=== PATIENT | female | born 1955 | race Caucasian/White ===

== ENCOUNTER → 2018-04-26 14:38 | Outpatient (CLI) | payer OTHER, SELFPAY ==
--- NOTE | 2018-04-26 | DI.MRI.S_ITS ---
PROCEDURE: MR PELVIS WO CON INDICATIONS: Tailbone pain. Nerve pain in buttocks rectum and vagina worsening for 3 months. History of endometrial carcinoma. TECHNIQUE: Coronal T1 and STIR, axial T1, T2, and STIR sequences of the sacrum are performed. COMPARISON: [facility], CT, CT CHEST ABDOMEN PELVIS WITH CONTRAST, 01/20/2018, 16:20. Outside Film, CT, CT ABDOMEN PELVIS WITH/WITHOUT CONTRAST, 03/19/2018, 8:18. FINDINGS: Image quality: Excellent. Within the left aspect of the S4 and S5 segments, there is a 38 mm diameter low T1/T2 and high STIR signal intensity mass which demonstrates a prominent extraosseous component protruding anterolaterally. There is moderate to adjacent edema within the adjacent aspect of the sacrum, as well as within the left pirformis musculature. There is associated impingement upon the left S3 and S4 nerve roots. Moderate reactive signal within the endplates adjacent to the L4-L5 and L5-S1 intervertebral discs. Status post hysterectomy. Visualized portions of urinary bladder grossly unremarkable. Visualized bowel loops grossly unremarkable. No regional adenopathy. Visualized vasculature is normal in caliber. IMPRESSION: 1. Left lower sacral bony metastasis, with prominent extraosseous component, demonstrating neural impingement as described above. There is adjacent edema within the piriformis musculature. Dictated by: Lacey Montes M.D. on 04/26/2018 at 16:34 Approved by: Lacey Montes M.D. on 04/26/2018 at 16:42
== END ==
PROVIDERS: PCP Student in an Organized Health Care Education/Training Program; Visit Provider Student in an Organized Health Care Education/Training Program
DX: C79.51 Secondary malignant neoplasm of bone (principal); M53.3 Sacrococcygeal disorders, not elsewhere classified; Z85.42 Personal history of malignant neoplasm of other parts of uterus
CPT/HCPCS: 72195; 77080

== ENCOUNTER 2018-07-29 00:56 | Emergency (ER) | payer OTHER, SELFPAY ==
[2018-07-29 01:00] VITALS: BP 148/80; PULSE 67; RESP 15; TEMP 36.6; O2SAT 100; BMI 30.7
--- NOTE | 2018-07-29 01:17 | ED_ITS ---
HPI - General Adult General Chief complaint: Toxicology Problem Stated complaint: detoxing Time Seen by Provider: 07/29/18 01:17 Source: patient Mode of arrival: ambulatory Limitations: no limitations History of Present Illness HPI narrative: Patient is a 63-year-old female who is been on hydrocodone/acetaminophen for the past 4 months. She is currently undergoing a taper in order to come off this medication. She is being followed by her primary doctor. Recently she was switched from oral tablets to liquid in order to obtain lower lower doses of the hydrocodone. She is approximately 10 days left on the taper that was prescribed to her by her primary doctor. She states that since she started on the liquid form the medication she has had issues of irritability, sleeplessness, shaking, nausea, elevated blood pressure. Patient states she thinks she is having allergic reaction to the liquid version of this medication Related Data Previous Rx's Medication Instructions Recorded clonidine 1 patch TRANSDERMAL QWEEK #1 each 07/29/18 Allergies Allergy/AdvReac Type Severity Reaction Status Date / Time ibuprofen Allergy Verified 07/29/18 01:06 Iodinated Contrast- Oral and Allergy Verified 07/29/18 01:06 IV Dye Review of Systems Constitutional Reports body ache(s), Reports chills, Reports fatigue, Denies fever(s), Denies headache(s) and Reports night sweats ENT Ears, Nose, Mouth, and Throat: Denies headache(s) Cardiovascular Denies chest pain, Reports palpitations and Denies dyspnea Respiratory Denies dyspnea Gastrointestinal Gastrointestinal: Reports nausea Integumentary/Breasts Denies rash Neurologic Reports behavioral changes, Denies headache(s) and Reports tremor(s) Psychiatric Reports behavioral changes Endocrine Reports fatigue and Reports palpitations Hematologic/Lymphatic Denies easy bleeding and Denies easy bruising PFSH Surgical History No pertinent past surgical history (Acute) Social History marital status: lives independently: Yes Exam Initial Vital Signs Initial Vital Signs: Vital Signs Temperature 97.8 F 07/29/18 01:00 Pulse Rate 67 07/29/18 01:00 Respiratory Rate 15 07/29/18 01:00 Blood Pressure 148/80 H 07/29/18 01:00 Pulse Oximetry 100 07/29/18 01:00 Const General: cooperative, well developed, well groomed and No acute distress HENMT Head: normal to inspection and normocephalic Resp Effort & Inspection: normal respiratory effort Cardio Rate: regular rate GI Inspection: non-distended Skin Lesions: no lesions Rashes: no rashes Neuro General: alert, awake and oriented x3 Cognition: normal cognition Speech: speech normal Gait: normal gait Extrem General: normal to inspection and normal exam except as noted Psych Appearance: grossly normal and well kempt Speech and Movement: restless Mood: anxious mood and No angry Affect: normal affect Attitude: cooperative Thought Content: normal Course Orders Ordered: Discontinued Medications Clonidine HCl (Catapres-Tts 1) 0.1 mg TOP NOW ONE Stop: 07/29/18 01:44 Last Admin: 07/29/18 01:53 Dose: 0.1 mg Vital Signs - 8 hr 07/29/18 01:00 07/29/18 02:00 Temperature 97.8 F Pulse Rate 67 62 Respiratory Rate 15 18 Blood Pressure 148/80 H 141/70 H Pulse Oximetry 100 100 Medical Decision Making [facility] Narrative Medical decision making narrative: Explain to the patient that her symptoms are most likely not a reaction to the liquid version this medication but are most likely symptoms of withdrawal as she continues to decrease the hydrocodone use. Patient seems extremely determine to come off of the medication. She is not asking for more medication. Informed her that it is likely that her symptoms will continue until she is off of the opioid. She was given a clonidine patch in the ER to help with the symptoms. Try to provide as much encouragement is possible that the symptoms she is experiencing will not last for ever and it is important for her to continue the taper to come off the medication. Patient expressed understanding and agreement plan. Discharge Plan Departure Patient Disposition: Home Clinical Impression: Opioid withdrawal Discharge Date/Time: 07/29/18 02:00 Interventions: ED Discharge Assessment Last Done: 07/29/18 02:00 Instructions: Non-Medication Pain Relief Activity Restrictions/Additional Instructions: I would recommend that you continue taking the taper as directed by your primary doctor. Use the clonidine patch as directed. Return to the emergency department for any new or worsening symptoms Prescriptions: New clonidine 0.1 mg/24 hr patch weekly 1 patch Transdermal QWEEK Qty: 1 RF: 0 Referrals: Luh Dean PA-C [Primary Care Provider] -
[2018-07-29] MEDS: cloNIDine TTS 0.1 MG PATCH TOP (01:53)
[2018-07-29 02:00] VITALS: BP 141/70; PULSE 62; RESP 18; O2SAT 100
== END 2018-07-29 02:00 | disposition home or self-care (01) ==
PROVIDERS: Emergency Provider Emergency Medicine; PCP Student in an Organized Health Care Education/Training Program
DX: F11.23 Opioid dependence with withdrawal (principal)
CPT/HCPCS: 99282; 99283

== ENCOUNTER 2018-08-01 13:10 | Emergency (ER) | payer OTHER, SELFPAY ==
[2018-08-01] VITALS (9 sets, daily range): BP systolic 104–135; BP diastolic 52–79; PULSE 57–129; RESP 16–18; TEMP 36.2–36.7; O2SAT 99–100
[2018-08-01 14:07] LABS: INR 0.9 (0.9-1.3); Prothrombin Time 10.8 SECONDS (10.1-12.7)
[2018-08-01 14:09] LABS: PTT Partial Thromboplastin Tim 32 SECONDS (26.4-36.2)
[2018-08-01 14:13] LABS: Alanine Aminotransferase 14 IU/L (9-52); Albumin 4.3 g/dL (3.5-5.0); Albumin Globulin Ratio 1.3 (1.0-2.8); Alkaline Phosphatase 75 U/L (38-126); Aspartate Aminotransferase 23 IU/L (14-36); BUN Creatinine Ratio 16.3 (6-22); Bilirubin Total 0.5 mg/dL (0.2-1.3); Blood Urea Nitrogen 13 mg/dL (7-17); Calcium 9.5 mg/dL (8.4-10.2); Carbon Dioxide 28 mmol/L (22-32); Chloride 104 mmol/L (98-107); Estimated Glomerular Filt Rate > 60.0 mL/min (>60); Globulin 3.4 g/dL (1.7-4.1); Glucose 88 mg/dL (80-110); HEMOLYSIS < 15 (0-50); Lipase 215 U/L (23-300); Potassium 4.4 mmol/L (3.4-5.1); Sodium 139 mmol/L (137-145); Total Protein 7.7 g/dL (6.3-8.2)
[2018-08-01 14:19] LABS: Add Manual Diff / Slide Review NO; Basophils Absolute Auto 0 /uL (0-100); Basophils Percent Auto 0.4 % (0-2); Eosinophils Absolute Auto 0 /uL (0-450); Eosinophils Percent Auto 0.3 % (2-4); Hematocrit 39.4 % (36-46); Hemoglobin 13.4 g/dL (12.0-16.0); Lymphocytes Absolute Auto 600 /uL (1100-4500); Lymphocytes Percent Auto 15.1 % (25-40); Mean Corpuscular Hemoglobin 31.4 PG (26-34); Mean Corpuscular Volume 92.3 fL (80-100); Monocytes Absolute Auto 300 /uL (0-900); Neutrophils Absolute Auto 2900 /uL (1500-7000); Neutrophils Percent Auto 75.2 % (50-75); Platelet Count 232 X10^3/uL (150-400); Red Blood Cell Count 4.27 X10^6/uL (4.0-5.2); Red Cell Distribution Width 13.6 % (11.6-14.8); White Blood Cell Count 3.9 X10^3/uL (4.5-11.0)
--- NOTE | 2018-08-01 15:05 | ED.NAVMDI ---
HPI - Nausea/Vomiting/Diarrhea General Chief complaint: Nausea/Vomiting/Diarrhea Stated complaint: detox Time Seen by Provider: 08/01/18 14:50 Source: patient and family () Mode of arrival: ambulatory Limitations: no limitations History of Present Illness HPI Narrative: This 63-year-old female comes to the emergency department with complaint for not feeling well. Patient states she has felt nauseated. She states she might just be detoxing from the [place] that she has been tapering she took her last dose on Tuesday, 4 days ago. Before she was hot and cold, nauseated but not vomiting. She had difficulty with sleeping, tremor and feeling irritable. She since is continue have nausea and still feels sort of chilled but is not having any additional symptoms. She did note that she started having light bowel movements there sort of light brown in color, she states they are not white. She is not having any abdominal pain. She states her her appetite is decreased. She states she has lost about 15 lb over 3 or 4 months she has not been attempting to lose weight but she is on a restricted diet from her herbalist. Patient was seen last in April of 2018 and had a PET scan which showed a metastases to her tailbone from her uterine cancer/endometrial cancer. Patient had radiation and has not followed upper had any additional imaging. She had some nodules in her lungs, patient states her cell she refused chemo and has not followed up with Oncology since. She has not had any additional imaging or follow-up. She also takes thyroid medication. She denies smoke, tobacco, she sometimes uses THC. Mya gamez is her primary care. Related Data Previous Rx's Medication Instructions Recorded clonidine 1 patch TRANSDERMAL QWEEK #1 each 07/29/18 ondansetron HCl [Zofran] 4 mg PO QID PRN #10 tab 08/01/18 Allergies Allergy/AdvReac Type Severity Reaction Status Date / Time ibuprofen Allergy Verified 07/29/18 01:06 Iodinated Contrast- Oral and Allergy Verified 07/29/18 01:06 IV Dye Review of Systems Review of Systems ROS Unobtainable: All systems reviewed & are unremarkable except as noted in HPI and below Constitutional Denies body ache(s), Reports chills, Denies fever(s), Denies lethargy and Denies weakness Cardiovascular Denies chest pain, Denies diaphoresis, Denies syncope, Denies edema, Denies lightheadedness, Denies palpitations and Denies dyspnea Respiratory Denies chest congestion, Denies cough, Denies dyspnea and Denies wheezing Gastrointestinal Gastrointestinal: Denies abdominal pain, Denies change in bowel habits, Reports change in stool character (Light colored stool), Denies diarrhea, Reports nausea and Denies vomiting Genitourinary Denies hematuria, Denies dysuria, Denies flank pain, Denies urinary incontinence and Denies urinary urgency Musculoskeletal Reports arthralgias (Bilateral hip pain, states chronic but is worsened since she stopped norco) Integumentary/Breasts Denies erythema Neurologic Denies syncope and Denies weakness Endocrine Denies palpitations Allergic/Immunologic Denies wheezing [facility] Surgical History No pertinent past surgical history (Acute) Social History marital status: lives independently: Yes Smoking Status: Never smoker Social History (Updated 08/01/18 @ 16:06 by Kelly Lizama DO) marital status: lives independently: Yes Smoking Status: Never smoker substance use type: marijuana Exam Narrative Exam Narrative: GENERAL: Alert and oriented x three, moderately obese, well-appearing female in no acute distress. HEENT: Head normocephalic, atraumatic, EOMI, pupils reactive, face symmetric, moist mucous membranes NECK: Supple, full range of motion CARDIOVASCULAR: Regular rate and rhythm without murmurs, rubs or gallops. RESPIRATORY: Breath sounds equal bilaterally, no wheezes rales or rhonchi. ABDOMEN: Soft, nontender. Nondistended. Normoactive bowel sounds all 4 quadrants. No guarding or rebound, rigidity, no mass : No CVA tenderness EXTREMITIES: Normal range of motion, no clubbing or edema. Neurovascularly intact NEUROLOGICAL: Cranial nerves II through XII grossly intact. Moving all extremities SKIN: Warm, dry, no petechiae, no rashes or lesions. Initial Vital Signs Initial Vital Signs: Vital Signs Temperature 97.1 F L 08/01/18 13:36 Pulse Rate 62 08/01/18 13:36 Respiratory Rate 18 08/01/18 13:36 Blood Pressure 135/79 08/01/18 13:36 Pulse Oximetry 100 08/01/18 13:36 Course Orders Ordered: ED Orders 08/01/18 13:52 Complete Blood Count AUTO DIFF Stat Comprehensive Metabolic Panel Stat Lipase Stat Partial Thromboplastin Time Stat Prothrombin Time INR Stat 08/01/18 14:58 EKG-12 Lead Stat 08/01/18 15:26 US abdomen complete Stat XR chest 2V Stat 08/01/18 15:45 UA Complete [Urinalysis and Microscopic] Stat 08/01/18 15:50 Troponin & CK Cardiac Panel Stat Discontinued Medications Ondansetron HCl (Zofran Odt) 4 mg SL NOW ONE Stop: 08/01/18 15:27 Last Admin: 08/01/18 16:16 Dose: 4 mg Vital Signs - 8 hr 08/01/18 13:36 08/01/18 14:15 08/01/18 14:45 Temperature 97.1 F L Pulse Rate 62 129 H 57 L Respiratory Rate 18 16 Blood Pressure 135/79 Blood Pressure [Right Arm] 107/64 115/58 L Pulse Oximetry 100 08/01/18 14:54 08/01/18 15:00 08/01/18 15:57 Temperature Pulse Rate 58 L 57 L 60 Respiratory Rate 18 16 18 Blood Pressure Blood Pressure [Right Arm] 115/58 L 131/76 128/66 Pulse Oximetry 100 100 100 08/01/18 16:00 08/01/18 17:00 08/01/18 17:02 Temperature 98.1 F Pulse Rate 57 L 60 Respiratory Rate 16 16 18 Blood Pressure Blood Pressure [Right Arm] 128/66 104/52 L 104/52 L Pulse Oximetry 100 100 99 MDM - Nausea/Vomiting/Diarrhea Lab Data Attestation: I reviewed the patient's lab results. Result diagrams: 08/01/18 13:52 08/01/18 13:52 Lab Results 08/01/18 08/01/18 08/01/18 Range/Units 13:52 13:52 13:52 WBC 3.9 L (4.5-11.0) X10^3/uL RBC 4.27 (4.0-5.2) X10^6/uL Hgb 13.4 (12.0-16.0) g/dL Hct 39.4 (36-46) % MCV 92.3 (80-100) fL MCH 31.4 (26-34) PG MCHC 34.0 (30-36) % RDW 13.6 (11.6-14.8) % Plt Count 232 (150-400) X10^3/uL Neut % (Auto) 75.2 H (50-75) % Lymph % (Auto) 15.1 L (25-40) % [place] % (Auto) 9.0 (3-14) % Eos % (Auto) 0.3 L (2-4) % Baso % (Auto) 0.4 (0-2) % Neut # (Auto) 2900 (9847-2176) /uL Lymph # (Auto) 600 L (4073-8248) /uL [place] # (Auto) 300 (0-900) /uL Eos # (Auto) 0 (0-450) /uL Baso # (Auto) 0 (0-100) /uL PT 10.8 (10.1-12.7) SECONDS INR 0.9 (0.9-1.3) APTT 32 (26.4-36.2) SECONDS Sodium 139 (137-145) mmol/L Potassium 4.4 (3.4-5.1) mmol/L Chloride 104 (98-107) mmol/L Carbon Dioxide 28 (22-32) mmol/L BUN 13 (7-17) mg/dL Creatinine 0.80 (0.52-1.04) mg/dL Estimated GFR > 60.0 (>60) mL/min BUN/Creatinine Ratio 16.3 (6-22) Glucose 88 (80-110) mg/dL Calcium 9.5 (8.4-10.2) mg/dL Total Bilirubin 0.5 (0.2-1.3) mg/dL AST 23 (14-36) IU/L ALT 14 (9-52) IU/L Alkaline Phosphatase 75 (38-126) U/L Total Creatine Kinase (30-135) U/L CK-MB (CK-2) CK-MB (CK-2) Rel Index Troponin I (0.01-0.034) ng/mL Total Protein 7.7 (6.3-8.2) g/dL Albumin 4.3 (3.5-5.0) g/dL Globulin 3.4 (1.7-4.1) g/dL Albumin/Globulin Ratio 1.3 (1.0-2.8) Lipase 215 (23-300) U/L Urine Color Urine Appearance Urine pH (4.5-8.0) Ur Specific [place] (1.000-1.035) Urine Protein (Negative) Urine Glucose (UA) (Negative) g/dL Urine Ketones (NEGATIVE) Urine Occult Blood (Negative) Urine Nitrate (Negative) Urine Bilirubin (NEGATIVE) Urine Urobilinogen (0.2) E.U./dL Ur Leukocyte Esterase (NEGATIVE) Urine RBC (0-5/HPF) Urine WBC (0-5/HPF) Urine Bacteria (None) Ur Culture Indicated? Micro UA Comment 08/01/18 08/01/18 Range/Units 15:45 15:50 WBC (4.5-11.0) X10^3/uL RBC (4.0-5.2) X10^6/uL Hgb (12.0-16.0) g/dL Hct (36-46) % MCV (80-100) fL MCH (26-34) PG MCHC (30-36) % RDW (11.6-14.8) % Plt Count (150-400) X10^3/uL Neut % (Auto) (50-75) % Lymph % (Auto) (25-40) % [place] % (Auto) (3-14) % Eos % (Auto) (2-4) % Baso % (Auto) (0-2) % Neut # (Auto) (7092-7710) /uL Lymph # (Auto) (7503-3291) /uL [place] # (Auto) (0-900) /uL Eos # (Auto) (0-450) /uL Baso # (Auto) (0-100) /uL PT (10.1-12.7) SECONDS INR (0.9-1.3) APTT (26.4-36.2) SECONDS Sodium (137-145) mmol/L Potassium (3.4-5.1) mmol/L Chloride (98-107) mmol/L Carbon Dioxide (22-32) mmol/L BUN (7-17) mg/dL Creatinine (0.52-1.04) mg/dL Estimated GFR (>60) mL/min BUN/Creatinine Ratio (6-22) Glucose (80-110) mg/dL Calcium (8.4-10.2) mg/dL Total Bilirubin (0.2-1.3) mg/dL AST (14-36) IU/L ALT (9-52) IU/L Alkaline Phosphatase (38-126) U/L Total Creatine Kinase 28 L (30-135) U/L CK-MB (CK-2) TNP CK-MB (CK-2) Rel Index TNP Troponin I < 0.012 (0.01-0.034) ng/mL Total Protein (6.3-8.2) g/dL Albumin (3.5-5.0) g/dL Globulin (1.7-4.1) g/dL Albumin/Globulin Ratio (1.0-2.8) Lipase (23-300) U/L Urine Color Yellow Urine Appearance Clear Urine pH 5.0 (4.5-8.0) Ur Specific [place] 1.010 (1.000-1.035) Urine Protein Negative (Negative) Urine Glucose (UA) Negative (Negative) g/dL Urine Ketones Negative (NEGATIVE) Urine Occult Blood Negative (Negative) Urine Nitrate Negative (Negative) Urine Bilirubin Negative (NEGATIVE) Urine Urobilinogen 0.2 (0.2) E.U./dL Ur Leukocyte Esterase Negative (NEGATIVE) Urine RBC None seen (0-5/HPF) Urine WBC None seen (0-5/HPF) Urine Bacteria None seen (None) Ur Culture Indicated? Cult not indicated Micro UA Comment Microscopic normal Imaging Data Chest x-ray: Radiologist's impression: [address] [address] XRay Report Signed Patient: Talya Dale#: [id number] : 8Acct:[id number] Age/Sex: 63 / FDate of Service: 08/01/18 Loc: ED Accession Number: [id number] Procedure: XR chest 2V Ordering Provider: Kelly Lizama D.O. PROCEDURE: XR CHEST 2V INDICATIONS: nausea TECHNIQUE: 2 views of the chest were acquired. COMPARISON: [facility], CT, CT CHEST WITHOUT CONTRAST, 06/14/2018, 17:20. FINDINGS: Surgical changes and devices: None. Lungs and pleura: 2.5 cm right lower lobe lung nodules visible. There is mild diffuse emphysematous change. No other lung nodules are visible. No pleural effusions or pneumothorax. Mediastinum: Mediastinal contours are normal. Heart size is normal. Bones and chest wall: No suspicious bony abnormalities. Soft tissues appear unremarkable. IMPRESSION: 1. Mild emphysema. 2. 2.5 cm right lower lobe lung nodule compatible with known metastatic disease. Dictated by: Angie Hernandez M.D. on 08/01/2018 at 16:21 Approved by: Angie Hernandez M.D. on 08/01/2018 at 16:23 US - abdomen: Radiologist's impression: [place] [address] Ultrasound Report Signed Patient: Kelsi Dale#: [id number] : 8Acct:[id number] Age/Sex: 63 / FDate of Service: 08/01/18 Loc: ED Accession Number: [id number] Procedure: US abdomen complete Ordering Provider: Kelly Lizama D.O. PROCEDURE: US ABDOMEN COMPLETE INDICATIONS: NAUSEA, HX ENDOMETRIAL CA W/METS. HAD RAD NOT FLOLLOWIN TECHNIQUE: Real-time scanning was performed of the abdominal and retroperitoneal organs, with image documentation. COMPARISON: None. FINDINGS: Liver: Liver is normal in size and homogeneous in echotexture. Gallbladder: Gallbladder is normal without stones or sludge. Normal wall thickness of 1.6 mm. No pericholecystic fluid or Mcrae sign. Biliary ducts: Intrahepatic bile ducts are non-dilated. Extrahepatic bile duct caliber measures 5.3 mm. Normal is 6-7 mm or less in diameter, or 10 mm or less post-cholecystectomy. Pancreas: Visualized portions of the pancreas are sonographically normal. Spleen: Spleen is normal in size and homogeneous in echotexture. Kidneys: Kidneys are normal in size and echotexture. Right kidney measures 9.3 cm long; left kidney measures 10.3 cm long. No hydronephrosis or nephrolithiasis. No solid masses. Aorta: Visualized aorta is normal in caliber at less than 3 cm. Iliacs: Proximal common iliac arteries are normal in caliber at less than 2.5 cm. IVC: Intrahepatic inferior vena cava is patent. Miscellaneous: No free abdominal fluid. IMPRESSION: 1. Normal abdominal ultrasound. 2. No visible mass or fluid. Dictated by: Angie Hernandez M.D. on 08/01/2018 at 16:44 Approved by: Angie Hernandez M.D. on 08/01/2018 at 16:46 ECG Data Attestation: I personally reviewed and interpreted this ECG as follows: Prior ECG tracings: not available for review Interpretation: Sinus bradycardia rate of 59 P are 189 QRS of 93 QTC of 434. No ST elevation or depression appreciated. Left anterior fascicular block. MDM Narrative Medical decision making narrative: Patient's white count is a little bit low. none available for comparison. Patient's coags are normal, chemistries are normal with no changes in lipase, liver enzymes or troponin. Patient's EKG does not show any acute changes. Patient's chest x-ray does show a pulmonary nodule it is 2.5 cm of the right lower lobe lung nodule compatible with the known metastatic disease. No comments made if this is new or changed. No imaging is available for comparison right now. Abdominal ultrasound is negative. Discussed with patient some of this may be secondary to withdrawal symptoms but I would highly recommend that she follow up with her primary care to make sure that she has further surveillance as she is likely to have worsening of her disease. If she prefers her oncologist would also be a good choice. Discharge Plan Departure Patient Disposition: Home Clinical Impression: Nausea, Opioid withdrawal, Pulmonary nodule Discharge Date/Time: 08/01/18 17:30 Interventions: ED Discharge Assessment Last Done: 08/01/18 17:32 Instructions: Chemical Dependency (Narcotic) (Alternative Therapy) Activity Restrictions/Additional Instructions: Follow-up with your physician this week for recheck. I would also suggest following up with them regarding surveillance for your cancer. Continue with medications as prescribed such as the clonidine patch. May use Zofran 1 tablet every 6 hours as needed for nausea. Return to the ER for fevers greater than 100.4 F, persistent vomiting, black or bloody stools, abdominal pain, passing out, new chest pain, shortness of breath or other new or concerning symptoms. Prescriptions: New ondansetron HCl [Zofran] 4 mg tablet 4 mg PO QID PRN (Reason: nausea and vomiting) Qty: 10 RF: 0 No Action clonidine 0.1 mg/24 hr patch weekly 1 patch Transdermal QWEEK Qty: 1 RF: 0 Referrals: Luh Dean PA-C [Primary Care Provider] -
--- NOTE | 2018-08-01 15:26 | DI.RAD.S_ITS ---
PROCEDURE: XR CHEST 2V INDICATIONS: nausea TECHNIQUE: 2 views of the chest were acquired. COMPARISON: [facility], CT, CT CHEST WITHOUT CONTRAST, 06/14/2018, 17:20. FINDINGS: Surgical changes and devices: None. Lungs and pleura: 2.5 cm right lower lobe lung nodules visible. There is mild diffuse emphysematous change. No other lung nodules are visible. No pleural effusions or pneumothorax. Mediastinum: Mediastinal contours are normal. Heart size is normal. Bones and chest wall: No suspicious bony abnormalities. Soft tissues appear unremarkable. IMPRESSION: 1. Mild emphysema. 2. 2.5 cm right lower lobe lung nodule compatible with known metastatic disease. Dictated by: Angie Hernandez M.D. on 08/01/2018 at 16:21 Approved by: Angie Hernandez M.D. on 08/01/2018 at 16:23
--- NOTE | 2018-08-01 15:26 | DI.US.S_ITS ---
PROCEDURE: US ABDOMEN COMPLETE INDICATIONS: NAUSEA, HX ENDOMETRIAL CA W/METS. HAD RAD NOT FLOLLOWIN TECHNIQUE: Real-time scanning was performed of the abdominal and retroperitoneal organs, with image documentation. COMPARISON: None. FINDINGS: Liver: Liver is normal in size and homogeneous in echotexture. Gallbladder: Gallbladder is normal without stones or sludge. Normal wall thickness of 1.6 mm. No pericholecystic fluid or Mcrae sign. Biliary ducts: Intrahepatic bile ducts are non-dilated. Extrahepatic bile duct caliber measures 5.3 mm. Normal is 6-7 mm or less in diameter, or 10 mm or less post-cholecystectomy. Pancreas: Visualized portions of the pancreas are sonographically normal. Spleen: Spleen is normal in size and homogeneous in echotexture. Kidneys: Kidneys are normal in size and echotexture. Right kidney measures 9.3 cm long; left kidney measures 10.3 cm long. No hydronephrosis or nephrolithiasis. No solid masses. Aorta: Visualized aorta is normal in caliber at less than 3 cm. Iliacs: Proximal common iliac arteries are normal in caliber at less than 2.5 cm. IVC: Intrahepatic inferior vena cava is patent. Miscellaneous: No free abdominal fluid. IMPRESSION: 1. Normal abdominal ultrasound. 2. No visible mass or fluid. Dictated by: Angie Hernandez M.D. on 08/01/2018 at 16:44 Approved by: Angie Hernandez M.D. on 08/01/2018 at 16:46
--- NOTE | 2018-08-01 15:29 | PC.NURSE ---
pt concern for opiod withdrawal, c/o hot/chills,nausea and concern for beige looking stool for 2 weeks.
--- NOTE | 2018-08-01 16:09 | ED_ITS ---
HPI - Nausea/Vomiting/Diarrhea General Chief complaint: Nausea/Vomiting/Diarrhea Stated complaint: detox Time Seen by Provider: 08/01/18 14:50 Source: patient and family () Mode of arrival: ambulatory Limitations: no limitations History of Present Illness HPI Narrative: This 63-year-old female comes to the emergency department with complaint for not feeling well. Patient states she has felt nauseated. She states she might just be detoxing from the [place] that she has been tapering she took her last dose on Tuesday, 4 days ago. Before she was hot and cold, nauseated but not vomiting. She had difficulty with sleeping, tremor and feeling irritable. She since is continue have nausea and still feels sort of chilled but is not having any additional symptoms. She did note that she started having light bowel movements there sort of light brown in color, she states they are not white. She is not having any abdominal pain. She states her her appetite is decreased. She states she has lost about 15 lb over 3 or 4 months she has not been attempting to lose weight but she is on a restricted diet from her herbalist. Patient was seen last in April of 2018 and had a PET scan which showed a metastases to her tailbone from her uterine cancer/endometrial cancer. Patient had radiation and has not followed upper had any additional imaging. She had some nodules in her lungs, patient states her cell she refused chemo and has not followed up with Oncology since. She has not had any additional imaging or follow-up. She also takes thyroid medication. She denies smoke, tobacco, she sometimes uses THC. May gamez is her primary care. Related Data Previous Rx's Medication Instructions Recorded clonidine 1 patch TRANSDERMAL QWEEK #1 each 07/29/18 ondansetron HCl [Zofran] 4 mg PO QID PRN #10 tab 08/01/18 Allergies Allergy/AdvReac Type Severity Reaction Status Date / Time ibuprofen Allergy Verified 07/29/18 01:06 Iodinated Contrast- Oral and Allergy Verified 07/29/18 01:06 IV Dye Review of Systems Review of Systems ROS Unobtainable: All systems reviewed & are unremarkable except as noted in HPI and below Constitutional Denies body ache(s), Reports chills, Denies fever(s), Denies lethargy and Denies weakness Cardiovascular Denies chest pain, Denies diaphoresis, Denies syncope, Denies edema, Denies li ghtheadedness, Denies palpitations and Denies dyspnea Respiratory Denies chest congestion, Denies cough, Denies dyspnea and Denies wheezing Gastrointestinal Gastrointestinal: Denies abdominal pain, Denies change in bowel habits, Reports change in stool character (Light colored stool), Denies diarrhea, Reports nausea and Denies vomiting Genitourinary Denies hematuria, Denies dysuria, Denies flank pain, Denies urinary incontinence and Denies urinary urgency Musculoskeletal Reports arthralgias (Bilateral hip pain, states chronic but is worsened since she stopped norco) Integumentary/Breasts Denies erythema Neurologic Denies syncope and Denies weakness Endocrine Denies palpitations Allergic/Immunologic Denies wheezing [facility] Surgical History No pertinent past surgical history (Acute) Social History marital status: lives independently: Yes Smoking Status: Never smoker Social History (Updated 08/01/18 @ 16:06 by Kelly Lizama DO) marital status: lives independently: Yes Smoking Status: Never smoker substance use type: marijuana Exam Narrative Exam Narrative: GENERAL: Alert and oriented x three, moderately obese, well- appearing female in no acute distress. HEENT: Head normocephalic, atraumatic, EOMI, pupils reactive, face symmetric, moist mucous membranes NECK: Supple, full range of motion CARDIOVASCULAR: Regular rate and rhythm without murmurs, rubs or gallops. RESPIRATORY: Breath sounds equal bilaterally, no wheezes rales or rhonchi. ABDOMEN: Soft, nontender. Nondistended. Normoactive bowel sounds all 4 q uadrants. No guarding or rebound, rigidity, no mass : No CVA tenderness EXTREMITIES: Normal range of motion, no clubbing or edema. Neurovascularly intact NEUROLOGICAL: Cranial nerves II through XII grossly intact. Moving all extremities SKIN: Warm, dry, no petechiae, no rashes or lesions. Initial Vital Signs Initial Vital Signs: Vital Signs Temperature 97.1 F L 08/01/18 13:36 Pulse Rate 62 08/01/18 13:36 Respiratory Rate 18 08/01/18 13:36 Blood Pressure 135/79 08/01/18 13:36 Pulse Oximetry 100 08/01/18 13:36 Course Orders Ordered: ED Orders 08/01/18 13:52 Complete Blood Count AUTO DIFF Stat Comprehensive Metabolic Panel Stat Lipase Stat Partial Thromboplastin Time Stat Prothrombin Time INR Stat 08/01/18 14:58 EKG-12 Lead Stat 08/01/18 15:26 US abdomen complete Stat XR chest 2V Stat 08/01/18 15:45 UA Complete [Urinalysis and Microscopic] Stat 08/01/18 15:50 Troponin & CK Cardiac Panel Stat Discontinued Medications Ondansetron HCl (Zofran Odt) 4 mg SL NOW ONE Stop: 08/01/18 15:27 Last Admin: 08/01/18 16:16 Dose: 4 mg Vital Signs - 8 hr 08/01/18 13:36 08/01/18 14:15 08/01/18 14:45 Temperature 97.1 F L Pulse Rate 62 129 H 57 L Respiratory Rate 18 16 Blood Pressure 135/79 Blood Pressure [Right Arm] 107/64 115/58 L Pulse Oximetry 100 08/01/18 14:54 08/01/18 15:00 08/01/18 15:57 Temperature Pulse Rate 58 L 57 L 60 Respiratory Rate 18 16 18 Blood Pressure Blood Pressure [Right Arm] 115/58 L 131/76 128/66 Pulse Oximetry 100 100 100 08/01/18 16:00 08/01/18 17:00 08/01/18 17:02 Temperature 98.1 F Pulse Rate 57 L 60 Respiratory Rate 16 16 18 Blood Pressure Blood Pressure [Right Arm] 128/66 104/52 L 104/52 L Pulse Oximetry 100 100 99 MDM - Nausea/Vomiting/Diarrhea Lab Data Attestation: I reviewed the patient's lab results. Result diagrams: 08/01/18 13:52 08/01/18 13:52 Lab Results 08/01/18 08/01/18 08/01/18 Range/Units 13:52 13:52 13:52 WBC 3.9 L (4.5-11.0) X10^3/uL RBC 4.27 (4.0-5.2) X10^6/uL Hgb 13.4 (12.0-16.0) g/dL Hct 39.4 (36-46) % MCV 92.3 (80-100) fL MCH 31.4 (26-34) PG MCHC 34.0 (30-36) % RDW 13.6 (11.6-14.8) % Plt Count 232 (150-400) X10^3/uL Neut % (Auto) 75.2 H (50-75) % Lymph % (Auto) 15.1 L (25-40) % [place] % (Auto) 9.0 (3-14) % Eos % (Auto) 0.3 L (2-4) % Baso % (Auto) 0.4 (0-2) % Neut # (Auto) 2900 (2422-6930) /uL Lymph # (Auto) 600 L (8222-0094) /uL [place] # (Auto) 300 (0-900) /uL Eos # (Auto) 0 (0-450) /uL Baso # (Auto) 0 (0-100) /uL PT 10.8 (10.1-12.7) SECONDS INR 0.9 (0.9-1.3) APTT 32 (26.4-36.2) SECONDS Sodium 139 (137-145) mmol/L Potassium 4.4 (3.4-5.1) mmol/L Chloride 104 (98-107) mmol/L Carbon Dioxide 28 (22-32) mmol/L BUN 13 (7-17) mg/dL Creatinine 0.80 (0.52-1.04) mg/dL Estimated GFR > 60.0 (>60) mL/min BUN/Creatinine Ratio 16.3 (6-22) Glucose 88 (80-110) mg/dL Calcium 9.5 (8.4-10.2) mg/dL Total Bilirubin 0.5 (0.2-1.3) mg/dL AST 23 (14-36) IU/L ALT 14 (9-52) IU/L Alkaline Phosphatase 75 (38-126) U/L Total Creatine Kinase (30-135) U/L CK-MB (CK-2) CK-MB (CK-2) Rel Index Troponin I (0.01-0.034) ng/mL Total Protein 7.7 (6.3-8.2) g/dL Albumin 4.3 (3.5-5.0) g/dL Globulin 3.4 (1.7-4.1) g/dL Albumin/Globulin Ratio 1.3 (1.0-2.8) Lipase 215 (23-300) U/L Urine Color Urine Appearance Urine pH (4.5-8.0) Ur Specific [place] (1.000-1.035) Urine Protein (Negative) Urine Glucose (UA) (Negative) g/dL Urine Ketones (NEGATIVE) Urine Occult Blood (Negative) Urine Nitrate (Negative) Urine Bilirubin (NEGATIVE) Urine Urobilinogen (0.2) E.U./dL Ur Leukocyte Esterase (NEGATIVE) Urine RBC (0-5/HPF) Urine WBC (0-5/HPF) Urine Bacteria (None) Ur Culture Indicated? Micro UA Comment 08/01/18 08/01/18 Range/Units 15:45 15:50 WBC (4.5-11.0) X10^3/uL RBC (4.0-5.2) X10^6/uL Hgb (12.0-16.0) g/dL Hct (36-46) % MCV (80-100) fL MCH (26-34) PG MCHC (30-36) % RDW (11.6-14.8) % Plt Count (150-400) X10^3/uL Neut % (Auto) (50-75) % Lymph % (Auto) (25-40) % [place] % (Auto) (3-14) % Eos % (Auto) (2-4) % Baso % (Auto) (0-2) % Neut # (Auto) (2823-0983) /uL Lymph # (Auto) (7670-3919) /uL [place] # (Auto) (0-900) /uL Eos # (Auto) (0-450) /uL Baso # (Auto) (0-100) /uL PT (10.1-12.7) SECONDS INR (0.9-1.3) APTT (26.4-36.2) SECONDS Sodium (137-145) mmol/L Potassium (3.4-5.1) mmol/L Chloride (98-107) mmol/L Carbon Dioxide (22-32) mmol/L BUN (7-17) mg/dL Creatinine (0.52-1.04) mg/dL Estimated GFR (>60) mL/min BUN/Creatinine Ratio (6-22) Glucose (80-110) mg/dL Calcium (8.4-10.2) mg/dL Total Bilirubin (0.2-1.3) mg/dL AST (14-36) IU/L ALT (9-52) IU/L Alkaline Phosphatase (38-126) U/L Total Creatine Kinase 28 L (30-135) U/L CK-MB (CK-2) TNP CK-MB (CK-2) Rel Index TNP Troponin I < 0.012 (0.01-0.034) ng/mL Total Protein (6.3-8.2) g/dL Albumin (3.5-5.0) g/dL Globulin (1.7-4.1) g/dL Albumin/Globulin Ratio (1.0-2.8) Lipase (23-300) U/L Urine Color Yellow Urine Appearance Clear Urine pH 5.0 (4.5-8.0) Ur Specific [place] 1.010 (1.000-1.035) Urine Protein Negative (Negative) Urine Glucose (UA) Negative (Negative) g/dL Urine Ketones Negative (NEGATIVE) Urine Occult Blood Negative (Negative) Urine Nitrate Negative (Negative) Urine Bilirubin Negative (NEGATIVE) Urine Urobilinogen 0.2 (0.2) E.U./dL Ur Leukocyte Esterase Negative (NEGATIVE) Urine RBC None seen (0-5/HPF) Urine WBC None seen (0-5/HPF) Urine Bacteria None seen (None) Ur Culture Indicated? Cult not indicated Micro UA Comment Microscopic normal Imaging Data Chest x-ray: Radiologist's impression: [place] [address] XRay Report Signed Patient: Talya Dale#: [id number] : 8Acct:[id number] Age/Sex: 63 / FDate of Service: 08/01/18 Loc: ED Accession Number: [id number] Procedure: XR chest 2V Ordering Provider: Kelly Lizama D.O. PROCEDURE: XR CHEST 2V INDICATIONS: nausea TECHNIQUE: 2 views of the chest were acquired. COMPARISON: [facility], CT, CT CHEST WITHOUT CONTRAST, 06/14/2018, 17:20. FINDINGS: Surgical changes and devices: None. Lungs and pleura: 2.5 cm right lower lobe lung nodules visible. There is mild diffuse emphysematous change. No other lung nodules are visible. No pleural effusions or pneumothorax. Mediastinum: Mediastinal contours are normal. Heart size is normal. Bones and chest wall: No suspicious bony abnormalities. Soft tissues appear unremarkable. IMPRESSION: 1. Mild emphysema. 2. 2.5 cm right lower lobe lung nodule compatible with known metastatic disease. Dictated by: Angie Hernandez M.D. on 08/01/2018 at 16:21 Approved by: Angie Hernandez M.D. on 08/01/2018 at 16:23 US - abdomen: Radiologist's impression: [address] [address] Ultrasound Report Signed Patient: Kelsi Dale#: [id number] : 8Acct:[id number] Age/Sex: 63 / FDate of Service: 08/01/18 Loc: ED Accession Number: [id number] Procedure: US abdomen complete Ordering Provider: Kelly Lizama D.O. PROCEDURE: US ABDOMEN COMPLETE INDICATIONS: NAUSEA, HX ENDOMETRIAL CA W/METS. HAD RAD NOT FLOLLOWIN TECHNIQUE: Real-time scanning was performed of the abdominal and retroperitoneal organs, with image documentation. COMPARISON: None. FINDINGS: Liver: Liver is normal in size and homogeneous in echotexture. Gallbladder: Gallbladder is normal without stones or sludge. Normal wall thickness of 1.6 mm. No pericholecystic fluid or Mcrae sign. Biliary ducts: Intrahepatic bile ducts are non-dilated. Extrahepatic bile duct caliber measures 5.3 mm. Normal is 6-7 mm or less in diameter, or 10 mm or less post-cholecystectomy. Pancreas: Visualized portions of the pancreas are sonographically normal. Spleen: Spleen is normal in size and homogeneous in echotexture. Kidneys: Kidneys are normal in size and echotexture. Right kidney measures 9.3 cm long; left kidney measures 10.3 cm long. No hydronephrosis or nephrolithiasis. No solid masses. Aorta: Visualized aorta is normal in caliber at less than 3 cm. Iliacs: Proximal common iliac arteries are normal in caliber at less than 2.5 cm. IVC: Intrahepatic inferior vena cava is patent. Miscellaneous: No free abdominal fluid. IMPRESSION: 1. Normal abdominal ultrasound. 2. No visible mass or fluid. Dictated by: Angie Hernandez M.D. on 08/01/2018 at 16:44 Approved by: Angie Hernandez M.D. on 08/01/2018 at 16:46 ECG Data Attestation: I personally reviewed and interpreted this ECG as follows: Prior ECG tracings: not available for review Interpretation: Sinus bradycardia rate of 59 P are 189 QRS of 93 QTC of 434. No ST elevation or depression appreciated. Left anterior fascicular block. MDM Narrative Medical decision making narrative: Patient's white count is a little bit low. none available for comparison. Patient's coags are normal, chemistries are normal with no changes in lipase, liver enzymes or troponin. Patient's EKG does not show any acute changes. Patient's chest x-ray does show a pulmonary nodule it is 2.5 cm of the right lower lobe lung nodule compatible with the known metastatic disease. No comments made if this is new or changed. No imaging is available for comparison right now. Abdominal ultrasound is negative. Discussed with patient some of this may be secondary to withdrawal symptoms but I would highly recommend that she follow up with her primary care to make sure that she has further surveillance as she is likely to have worsening of her disease. If she prefers her oncologist would also be a good choice. Discharge Plan Departure Patient Disposition: Home Clinical Impression: Nausea, Opioid withdrawal, Pulmonary nodule Discharge Date/Time: 08/01/18 17:30 Interventions: ED Discharge Assessment Last Done: 08/01/18 17:32 Instructions: Chemical Dependency (Narcotic) (Alternative Therapy) Activity Restrictions/Additional Instructions: Follow-up with your physician this week for recheck. I would also suggest following up with them regarding surveillance for your cancer. Continue with medications as prescribed such as the clonidine patch. May use Zofran 1 tablet every 6 hours as needed for nausea. Return to the ER for fevers greater than 100.4 F, persistent vomiting, black or bloody stools, abdominal pain, passing out, new chest pain, shortness of breath or other new or concerning symptoms. Prescriptions: New ondansetron HCl [Zofran] 4 mg tablet 4 mg PO QID PRN (Reason: nausea and vomiting) Qty: 10 RF: 0 No Action clonidine 0.1 mg/24 hr patch weekly 1 patch Transdermal QWEEK Qty: 1 RF: 0 Referrals: Luh Dean PA-C [Primary Care Provider] -
[2018-08-01 16:10] LABS: Creatine Kinase 28 U/L (30-135)
[2018-08-01] MEDS: ONDANSETRON 4 MG ODT SL (16:16)
[2018-08-01 16:22] LABS: Troponin I < 0.012 ng/mL (0.01-0.034)
[2018-08-01 16:28] LABS: Bacteria Urine None Seen; RBC Urine None Seen (0-5/HPF); WBC Urine None Seen (0-5/HPF)
[2018-08-01 16:30] LABS: Appearance Urine UA CLEAR; Bilirubin Urine UA NEGATIVE (NEGATIVE); Color Urine UA YELLOW; Glucose Urine UA NEGATIVE (Negative); Ketones Urine UA NEGATIVE (NEGATIVE); Leukocyte Esterase Urine UA NEGATIVE (NEGATIVE); Nitrite Urine UA NEGATIVE (Negative); Occult Blood Urine UA NEGATIVE (Negative); Protein Urine UA NEGATIVE (Negative); Urobilinogen Urine UA 0.2 E.U./dL (0.2)
[2018-08-01 16:44] LABS: Culture Indicated Urine Cult Not Indicated; Urine Comments Microscopic Normal
== END 2018-08-01 17:30 | disposition home or self-care (01) ==
PROVIDERS: Emergency Provider Emergency Medicine; PCP Student in an Organized Health Care Education/Training Program
DX: R11.0 Nausea (principal); R91.1 Solitary pulmonary nodule; F11.23 Opioid dependence with withdrawal; C54.1 Malignant neoplasm of endometrium; C79.51 Secondary malignant neoplasm of bone
CPT/HCPCS: 36415; 71046; 76700; 80053; 81001; 82550; 83690; 84484; 85025; 85610; 85730; 93005; 99283; 99285

== ENCOUNTER → 2019-02-20 14:28 | Outpatient (ROUT) | payer OTHER, SELFPAY ==
[2019-02-20 15:38] LABS: BUN Creatinine Ratio 16.7 (6-22); Blood Urea Nitrogen 15 mg/dL (7-17); Estimated Glomerular Filt Rate > 60.0 mL/min (>60)
== END ==
PROVIDERS: PCP Student in an Organized Health Care Education/Training Program; Visit Provider Internal Medicine
DX: C79.51 Secondary malignant neoplasm of bone (principal)
CPT/HCPCS: 82565; 84520

== ENCOUNTER 2019-04-10 23:02 | Emergency (ER) | payer OTHER, SELFPAY ==
[2019-04-10 23:18] VITALS: BP 127/59; PULSE 95; RESP 17; TEMP 37.8; O2SAT 95; BMI 32.4
[2019-04-10 23:50] LABS: Bacteria Urine None Seen; WBC Urine None Seen (0-5/HPF)
[2019-04-10 23:53] LABS: Culture Indicated Urine Cult Not Indicated; RBC Urine 1-5/HPF (0-5/HPF); Squamous Epithelial Cell Urine 0-1 /HPF (0-5/HPF)
[2019-04-11] MEDS: SODIUM CHLORIDE 0.9% 1,000 ML 1000 ML IV (00:08)
[2019-04-11 00:18] LABS: Add Manual Diff / Slide Review NO; Basophils Absolute Auto 0 /uL (0-100); Basophils Percent Auto 0.2 % (0-2); Eosinophils Absolute Auto 0 /uL (0-450); Eosinophils Percent Auto 0.3 % (2-4); Hematocrit 36.1 % (36-46); Hemoglobin 12.4 g/dL (12.0-16.0); Lymphocytes Absolute Auto 200 /uL (1100-4500); Lymphocytes Percent Auto 5.8 % (25-40); Mean Corpuscular HGB Conc 34.4 % (30-36); Mean Corpuscular Hemoglobin 31.1 PG (26-34); Mean Corpuscular Volume 90.3 fL (80-100); Monocytes Absolute Auto 600 /uL (0-900); Monocytes Percent Auto 18.3 % (3-14); Neutrophils Absolute Auto 2400 /uL (1500-7000); Neutrophils Percent Auto 75.4 % (50-75); Platelet Count 164 X10^3/uL (150-400); Red Blood Cell Count 3.99 X10^6/uL (4.0-5.2); Red Cell Distribution Width 14.3 % (11.6-14.8); White Blood Cell Count 3.2 X10^3/uL (4.5-11.0)
[2019-04-11 00:28] LABS: Alanine Aminotransferase 11 IU/L (<35); Albumin 3.9 g/dL (3.5-5.0); Albumin Globulin Ratio 1.2 (1.0-2.8); Alkaline Phosphatase 75 U/L (38-126); Aspartate Aminotransferase 22 IU/L (14-36); BUN Creatinine Ratio 17.5 (6-22); Bilirubin Total 0.3 mg/dL (0.2-1.3); Blood Urea Nitrogen 14 mg/dL (7-17); Calcium 8.8 mg/dL (8.4-10.2); Carbon Dioxide 26 mmol/L (22-32); Chloride 105 mmol/L (98-107); Estimated Glomerular Filt Rate > 60.0 mL/min (>60); Globulin 3.3 g/dL (1.7-4.1); Glucose 110 mg/dL (80-110); HEMOLYSIS < 15 (0-50); Lactate (Lactic Acid) 0.6 mmol/L (0.7-2.1); Potassium 4.1 mmol/L (3.4-5.1); Sodium 138 mmol/L (137-145); Total Protein 7.2 g/dL (6.3-8.2)
[2019-04-11 01:09] LABS: Influenza A - CEPHEID Flu A POSITIVE (NEGATIVE); Influenza B - CEPHEID Flu B NEGATIVE (NEGATIVE)
--- NOTE | 2019-04-11 01:57 | ED_ITS ---
HPI - Back Pain/Injury General Chief Complaint: Back Pain/Injury Stated Complaint: Severe Pain In Lower Back With Fever Time Seen by Provider: 04/10/19 23:05 Source: patient Mode of arrival: Ambulatory Limitations: no limitations History of Present Illness HPI Narrative: 63-year-old female nonsmoker with history of uterine cancer presents with her in the chief complaint back pain some dry and hacking cough and fever as high as 102 for the past day or 2. She has had nausea but denies any vomiting or diarrhea or abdominal pain. She does state that her pain is largely in her back and wraps around both flanks. She denies any dysuria, frequency or urgency. Her pain is not in the midline MD Complaint: back pain Onset (ago): day(s) Duration: constant Similar Symptoms Previously: No Location: left flank and right flank Severity: mild Quality: aching Radiation: abdomen Relieving factors: none Exacerbating factors: none Associated symptoms: fatigue, fever and chills Related Data Previous Rx's Medication Instructions Recorded clonidine 1 patch TRANSDERMAL QWEEK #1 each 07/29/18 ondansetron HCl [Zofran] 4 mg PO QID PRN #10 tab 08/01/18 oseltamivir [Tamiflu] 75 mg PO BID 5 Days #10 cap 04/11/19 Allergies Allergy/AdvReac Type Severity Reaction Status Date / Time ibuprofen Allergy Verified 07/29/18 01:06 Iodinated Contrast Media Allergy Verified 07/29/18 01:06 [Iodinated Contrast- Oral and IV Dye] Review of Systems Constitutional Constitutional: Reports chills, Reports fatigue, Reports fever(s), Denies frequent falls, Denies lethargy and Denies weakness Eyes Eyes: Denies change in vision, Denies eye discharge, Denies irritation and Denies loss of vision ENT Ears, Nose, Mouth, and Throat: Denies change in voice, Denies dizziness, Denies neck pain, Denies sore throat and Denies throat swelling Cardiovascular Cardiovascular: Denies chest pain, Denies irregular heart rhythm, Denies lightheadedness, Denies palpitations, Denies dyspnea, Denies dyspnea on exertion and Denies orthopnea Respiratory Respiratory: Reports cough, Denies dyspnea, Denies dyspnea on exertion and Denies wheezing Gastrointestinal Gastrointestinal: Denies abdominal pain, Denies change in bowel habits, Denies diarrhea, Denies nausea and Denies vomiting Genitourinary Genitourinary: Denies hematuria, Denies flank pain, Denies urinary incontinence and Denies urinary urgency Musculoskeletal Musculoskeletal: Denies back pain, Denies muscle weakness, Denies neck pain, Denies numbness and Denies tingling Integumentary/Breasts Skin/Breast: Denies pruritus, Denies erythema, Denies rash and Denies wounds Neurologic Neurologic: Denies behavioral changes, Denies confusion, Denies dizziness, Denies frequent falls, Denies loss of vision, Denies numbness, Denies tingling and Denies weakness Psychiatric Psychiatric: Denies anxiety, Denies behavioral changes, Denies confusion, Denies depression, Denies homicidal ideation and Denies suicidal ideation Endocrine Endocrine: Reports fatigue, Denies flushing and Denies palpitations Hematologic/Lymphatic Hematologic/Lymphatic: Denies easy bruising Allergic/Immunologic Allergic/Immunologic: Denies urticaria, Denies throat swelling and Denies wheezing Patient History Surgical History No pertinent past surgical history (Acute) Social History marital status: lives independently: Yes Smoking Status: Never smoker substance use type: marijuana Smoking Status: Never smoker alcohol intake frequency: other Substance Use Type: marijuana Exam Narrative Exam Narrative: GENERAL: [63] year old patient appears stated age. Well- nourished, well-developed patient, in mild distress. HEAD: Atraumatic. Normocephalic. EYES: Pupils equal round and reactive. Extraocular motions intact. No scleral icterus. No injection or drainage. ENT: Nose without bleeding, purulent drainage. Throat without erythema, tonsillar hypertrophy or exudate. Airway patent. NECK: Trachea midline. Non tender CARDIOVASCULAR: Regular rate and rhythm without murmurs, gallops, or rubs. RESPIRATORY: Clear to auscultation. Breath sounds equal bilaterally. No wheezes, rales, or rhonchi. GASTROINTESTINAL: Abdomen soft, non-tender, nondistended. EXTREMITIES: No edema or joint tenderness. BACK: Nontender without deformity or crepitance. No flank tenderness. NEURO: AOx3. SKIN: No rash or erythema of visible areas Initial Vital Signs Initial Vital Signs: Vital Signs Temperature 100.1 F H 04/10/19 23:18 Pulse Rate 95 H 04/10/19 23:18 Respiratory Rate 17 04/10/19 23:18 Blood Pressure 127/59 L 04/10/19 23:18 Pulse Oximetry 95 04/10/19 23:18 Course Orders Ordered: ED Orders 04/10/19 23:35 Urine Microscopic Stat 04/10/19 23:46 Blood Culture Stat Complete Blood Count AUTO DIFF Stat Comprehensive Metabolic Panel Stat Lactate (Lactic Acid) Stat 04/11/19 00:31 Influenza A & B (PCR) Stat Discontinued Medications Diphenhydramine HCl (Benadryl) 25 mg IV NOW ONE Stop: 04/10/19 23:46 Last Admin: 04/11/19 00:49 Dose: Not Given Documented by: DONALDL Sodium Chloride (Normal Saline 0.9%) 1,000 mls @ 1,000 mls/hr IV BOLUS ONE Stop: 04/11/19 00:44 Last Infusion: 04/11/19 01:09 Dose: 0 mls/hr Documented by: Admin: 04/11/19 00:08 Dose: 1,000 mls/hr Documented by: AUNDREA Methylprednisolone (Solu-Medrol 125 Mg Vial) 125 mg IV NOW ONE Stop: 04/10/19 23:46 Last Admin: 04/11/19 00:49 Dose: Not Given Documented by: RICARDO Oseltamivir Phosphate (Tamiflu) 75 mg PO NOW ONE Stop: 04/11/19 01:58 Last Admin: 04/11/19 02:11 Dose: 75 mg Documented by: BRIAN Vital Signs Vital signs: Vital Signs - 8 hr 04/10/19 23:18 04/11/19 02:01 Temperature 100.1 F H Pulse Rate 95 H 74 Respiratory Rate 17 15 Blood Pressure 127/59 L Blood Pressure [Left Arm] 136/67 Pulse Oximetry 95 95 MDM - Back Pain/Injury Lab Data Result diagrams: 04/11/19 00:05 04/11/19 00:05 Labs: Lab Results 04/10/19 04/11/19 04/11/19 Range/Units 23:35 00:05 00:05 WBC 3.2 L (4.5-11.0) X10^3/uL RBC 3.99 L (4.0-5.2) X10^6/uL Hgb 12.4 (12.0-16.0) g/dL Hct 36.1 (36-46) % MCV 90.3 (80-100) fL MCH 31.1 (26-34) PG MCHC 34.4 (30-36) % RDW 14.3 (11.6-14.8) % Plt Count 164 (150-400) X10^3/uL Neut % (Auto) 75.4 H (50-75) % Lymph % (Auto) 5.8 L (25-40) % [place] % (Auto) 18.3 H (3-14) % Eos % (Auto) 0.3 L (2-4) % Baso % (Auto) 0.2 (0-2) % Neut # (Auto) 2400 (4917-0478) /uL Lymph # (Auto) 200 L (5518-2210) /uL [place] # (Auto) 600 (0-900) /uL Eos # (Auto) 0 (0-450) /uL Baso # (Auto) 0 (0-100) /uL Sodium 138 (137-145) mmol/L Potassium 4.1 (3.4-5.1) mmol/L Chloride 105 (98-107) mmol/L Carbon Dioxide 26 (22-32) mmol/L BUN 14 (7-17) mg/dL Creatinine 0.80 (0.52-1.04) mg/dL Estimated GFR > 60.0 (>60) mL/min BUN/Creatinine Ratio 17.5 (6-22) Glucose 110 (80-110) mg/dL Lactate (0.7-2.1) mmol/L Calcium 8.8 (8.4-10.2) mg/dL Total Bilirubin 0.3 (0.2-1.3) mg/dL AST 22 (14-36) IU/L ALT 11 (<35) IU/L Alkaline Phosphatase 75 (38-126) U/L Total Protein 7.2 (6.3-8.2) g/dL Albumin 3.9 (3.5-5.0) g/dL Globulin 3.3 (1.7-4.1) g/dL Albumin/Globulin Ratio 1.2 (1.0-2.8) Urine RBC 1-5/hpf (0-5/HPF) Urine WBC None seen (0-5/HPF) Ur Squamous Epith Cells 0-1 /hpf (0-5/HPF) Urine Bacteria None seen (None) Ur Culture Indicated? Cult not indicated Influenza A (RT-PCR) (NEGATIVE) Influenza B (RT-PCR) (NEGATIVE) 04/11/19 04/11/19 Range/Units 00:05 00:31 WBC (4.5-11.0) X10^3/uL RBC (4.0-5.2) X10^6/uL Hgb (12.0-16.0) g/dL Hct (36-46) % MCV (80-100) fL MCH (26-34) PG MCHC (30-36) % RDW (11.6-14.8) % Plt Count (150-400) X10^3/uL Neut % (Auto) (50-75) % Lymph % (Auto) (25-40) % [place] % (Auto) (3-14) % Eos % (Auto) (2-4) % Baso % (Auto) (0-2) % Neut # (Auto) (7397-2269) /uL Lymph # (Auto) (0586-5102) /uL [place] # (Auto) (0-900) /uL Eos # (Auto) (0-450) /uL Baso # (Auto) (0-100) /uL Sodium (137-145) mmol/L Potassium (3.4-5.1) mmol/L Chloride (98-107) mmol/L Carbon Dioxide (22-32) mmol/L BUN (7-17) mg/dL Creatinine (0.52-1.04) mg/dL Estimated GFR (>60) mL/min BUN/Creatinine Ratio (6-22) Glucose (80-110) mg/dL Lactate 0.6 L (0.7-2.1) mmol/L Calcium (8.4-10.2) mg/dL Total Bilirubin (0.2-1.3) mg/dL AST (14-36) IU/L ALT (<35) IU/L Alkaline Phosphatase (38-126) U/L Total Protein (6.3-8.2) g/dL Albumin (3.5-5.0) g/dL Globulin (1.7-4.1) g/dL Albumin/Globulin Ratio (1.0-2.8) Urine RBC (0-5/HPF) Urine WBC (0-5/HPF) Ur Squamous Epith Cells (0-5/HPF) Urine Bacteria (None) Ur Culture Indicated? Influenza A (RT-PCR) Flu a positive H (NEGATIVE) Influenza B (RT-PCR) Flu b negative (NEGATIVE) Urine Dip Bedside Urine Glucose Negative Bedside Urine Bilirubin - Negative Bedside Urine Ketone - Negative Urine Specific [place] 1.015 Bedside Urine Occult Blood + Bedside Urine pH 6.0 Bedside Urine Protein - Negative Bedside Urine Urobilinogen - Negative Bedside Urine Nitrite - Negative Bedside Urine Leukocytes - Negative Esterase Discharge Plan Departure Patient Disposition: Home Clinical Impression: Influenza A Activity Restrictions/Additional Instructions: *You have been diagnosed with [influenza a] *What to do: *Take medications as directed *Follow up with your primary care provider in 2-3 days, call for an appointment. Let them know you were seen in the Emergency Department and that we ask that you be seen in follow up *Return to ER if you should have any new, worsening or concerning symptoms Prescriptions: New oseltamivir [Tamiflu] 75 mg capsule 75 mg PO BID 5 Days Qty: 10 RF: 0 No Action clonidine 0.1 mg/24 hr patch weekly 1 patch Transdermal QWEEK Qty: 1 RF: 0 ondansetron HCl [Zofran] 4 mg tablet 4 mg PO QID PRN (Reason: nausea and vomiting) Qty: 10 RF: 0 Referrals: Mya Denson MD [Primary Care Provider] -
[2019-04-11 02:01] VITALS: BP 136/67; PULSE 74; RESP 15; O2SAT 95
[2019-04-11] MEDS: OSELTAMIVIR 75 MG CAPSULE PO (02:11)
== END 2019-04-11 02:21 | disposition home or self-care (01) ==
PROVIDERS: Emergency Provider Emergency Medicine; PCP Internal Medicine
DX: J10.1 Influenza due to other identified influenza virus with other respiratory manifestations (principal); M54.5 Low back pain
CPT/HCPCS: 36415; 80053; 81003; 81015; 83605; 85025; 87040; 87502; 96360; 99284

== ENCOUNTER → 2019-04-20 16:07 | Outpatient (CLI) | payer OTHER, SELFPAY ==
--- NOTE | 2019-04-20 | DI.MRI.S_ITS ---
PROCEDURE: MR THORACIC SPINE WO/W CON INDICATIONS: UPPER BACK PAIN BETWEEN SHOULDER BLADES TECHNIQUE: Noncontrast sagittal T1 spin echo and T2 fast spin echo, sagittal STIR, axial T1 and T2 fast spin echo through the thoracic spine. After the administration of contrast, axial and sagittal T1 spin echo with fat saturation through the thoracic spine. COMPARISON: [facility], CT, CT CHEST ABDOMEN PELVIS WITH CONTRAST, 02/23/2019, 15:55. [facility], MR, MR THORACIC SPINE WITHOUT CONTRAST, 06/14/2018, 19:20. , CR, XR CHEST 2V, 08/01/2018, 15:59. FINDINGS: Image quality: Mild motion is present on multiple sequences, limiting areas of fine detail evaluation. The other Alignment and curvature: There is normal bony alignment. Marrow: Marrow is of normal overall signal. Reactive endplate changes at C7-T1 as well as T6-T7 are noted. No acute vertebral body compression fractures. Spinal cord: Visualized spinal cord is of normal signal and size, without abnormal enhancement. Paraspinous soft tissues: No paravertebral masses or abnormal enhancement. There are partially visualized bilateral pulmonary masses appearing more prominent on the right. It is noted these were present on 02/23/19. Despite differences in modality, some appear to have increased in size. Miscellaneous: Central canal and foramina appear widely patent at all scanned levels. Multilevel disc desiccation is present. Minimal disc bulge at T10-11, disc bulge with superimposed posterior left paracentral protrusion at T11-12, new compared to prior exam, disc bulge is present at L1-L2. IMPRESSION: 1. No evidence of osseous metastatic disease. 2. Bilateral pulmonary masses appearing more prominent when compared to 02/23/19. Recommend followup CT chest for evaluation of presumed metastatic disease. 3. New disc bulge with paracentral protrusion at T11-12. Dictated by: Alisia Remy M.D. on 04/24/2019 at 11:08 Approved by: Alisia Remy M.D. on 04/24/2019 at 11:42
--- NOTE | 2019-04-20 | DI.MRI.S_ITS ---
PROCEDURE: MR HEAD/BRAIN WO/W CON INDICATIONS: Altered mental status, unspecified. Headache TECHNIQUE: Noncontrast axial T1 spin echo, axial T2 fast spin echo, sagittal and axial FLAIR, coronal T2 fast spin echo, axial gradient echo, axial diffusion and ADC through the brain. After the administration of contrast, axial and coronal T1 spin echo with fat saturation through the brain. COMPARISON: [facility], MR, MR CERVICAL SPINE WO/W CON, 04/20/2019, 16:53. FINDINGS: Image quality: Excellent. CSF spaces: Basal cisterns are patent. No extra-axial fluid collections. Ventricles are normal in size and shape. Brain: No midline shift. No intracranial bleeds or masses. No abnormal intracranial enhancement. There is cerebral volume loss for age. There is periventricular white matter chronic small vessel ischemic change. The brainstem appears normal. Diffusion-weighted images demonstrate no acute ischemic insults. No chronic ischemic insults. Normal intravascular flow voids are present. Skull and face: Calvarial marrow is normal in signal. Orbits appear normal. Sinuses: Sinuses and mastoids appear clear. A left sided eleazar bullosa is incidentally noted. IMPRESSION: Unremarkable intracranial study, without an imaging explanation found for the patient's presenting history of headache. No masses or abnormal enhancement can be seen. No findings of acute or subacute infarction can be seen. Dictated by: Dominick Black M.D. on 04/23/2019 at 16:49 Approved by: Dominick Black M.D. on 04/23/2019 at 16:51
--- NOTE | 2019-04-20 | DI.MRI.S_ITS ---
PROCEDURE: MR CERVICAL SPINE WO/W CON INDICATIONS: Right arm and neck pain TECHNIQUE: Noncontrast sagittal T1 spin echo and T2 fast spin echo, sagittal STIR, foraminal oblique sagittal T2 fast spin echo, axial gradient echo or T2 fast spin echo through the cervical spine. After the administration of contrast, axial and sagittal T1 spin echo with fat saturation through the cervical spine. COMPARISON: None. FINDINGS: Image quality: Excellent. Alignment and curvature: There is trace anterolisthesis of C4 on C5. There is mild appearance overall cervical straightening. Marrow: Marrow is normal in overall signal, without suspicious enhancement. Mild reactive endplate changes are present at C6-7 surrounding Schmorl's node along the inferior endplate of C7. Spinal cord: Visualized spinal cord has normal size and signal. No cerebellar tonsillar herniation. No abnormal intramedullary enhancement. Paraspinous soft tissues: No paravertebral masses or suspicious enhancement. Discs: Moderate to severe desiccation is present throughout the cervical spine. C2-3: No disc bulge, spinal stenosis or foraminal narrowing. C3-4: Minimal disc bulge without spinal stenosis. Minimal bilateral foraminal narrowing and uncovertebral hypertrophy. C4-5: Minimal disc bulge without spinal stenosis or foraminal narrowing. Minimal uncovertebral hypertrophy. C5-6: Mild disc bulging including asymmetric left posterior lateral component. There is mild compromise of the left lateral recess. Overall, moderate to severe left and moderate right foraminal narrowing with uncovertebral hypertrophy. Moderate spinal stenosis. C6-7: Mild disc bulge with mild to moderate spinal stenosis. Moderate bilateral foraminal narrowing, right greater than left with uncovertebral hypertrophy. C7-T1: Minimal disc bulge with minimal to mild spinal stenosis. Moderate bilateral foraminal narrowing. IMPRESSION: 1. Multilevel disc bulges. 2. Multilevel spinal stenosis most notable at C5-6 secondary to disc bulge. 3. Multilevel foraminal narrowing most notable at C5-6 predominantly secondary to uncovertebral arthropathy. Dictated by: Alisia Remy M.D. on 04/24/2019 at 10:46 Approved by: Alisia Remy M.D. on 04/24/2019 at 11:05
== END ==
PROVIDERS: PCP Internal Medicine; Referring Provider Internal Medicine; Visit Provider Internal Medicine
DX: R41.82 Altered mental status, unspecified (principal); R51 Headache; M79.601 Pain in right arm; M53.3 Sacrococcygeal disorders, not elsewhere classified; M48.02 Spinal stenosis, cervical region; M50.222 Other cervical disc displacement at C5-C6 level; M51.24 Other intervertebral disc displacement, thoracic region; R91.8 Other nonspecific abnormal finding of lung field; Z85.42 Personal history of malignant neoplasm of other parts of uterus
CPT/HCPCS: 70553; 72156; 72157; A9579

== ENCOUNTER → 2019-04-23 15:40 | Outpatient (CLI) | payer OTHER, SELFPAY ==
--- NOTE | 2019-04-23 | DI.MRI.S_ITS ---
PROCEDURE: MR PELVIS WO/W CON INDICATIONS: Malignant neoplasm of uterus, part unspecified. Right pelvic, buttock pain TECHNIQUE: Coronal HASTE, sagittal breath-hold T2 FSE; axial T1 FSE with and without fat saturation through the pelvis. Optional long- and short-axis uterine nonbreath-hold T2 FSE through the uterus. Sagittal or axial dynamic VIBE during administration of contrast. Post-contrast axial or coronal VIBE/2-D FLASH with fat saturation from the iliac crests to the symphysis. Optional diffusion weighted imaging and ADC may be performed. COMPARISON: [facility], MR, MR PELVIS WO CON, 04/26/2018, 15:27. [facility], NM, NM BONE SCAN WHOLE BODY, 06/09/2018, 14:33. [facility], CT, CT CHEST ABDOMEN PELVIS WITH CONTRAST, 02/23/2019, 15:55. FINDINGS: Image quality: Excellent. Uterus: Surgically absent. Adnexa: No adnexal cystic or solid mass is found. Urinary system: Bladder wall is normal in thickness. Distal ureters are non distended. Urethra appears normal in morphology. Nodes and vessels: No pelvic or inguinal adenopathy by size criteria. Iliac vessels are normal in size. Bowel and peritoneum: No pathologic free pelvic fluid. Inferior colon and small bowel loops are normal in caliber. Soft tissues: No inguinal hernias. No findings of pelvic floor incompetence in the absence of provocation. Bones: The previously present exophytic left lower sacral mass identified 04/26/18 by MR scanning is now absent. Minimal heterogeneity within the left sacral marrow spaces present consistent with post radiation treatment and minimal residual scar. There is, however, diffuse infiltration by marrow space metastatic disease involving the right sacrum, extending from the sacral neural foramen on the right laterally to the sacroiliac joint. Maximal AP dimension is 3.8 cm, and transverse dimension is 3.9 cm with the maximal craniocaudad extent of 9.5 cm. And exophytic mass is not associated.. IMPRESSION: Successful treatment of marrow space metastatic disease with an associated exophytic mass at the lower left sacrum with reference to the study from 04/26/18. Interval development of marrow space tumor infiltration involving the right sacrum as discussed above without exophytic mass, measuring up to 3.8 x 3.9 x 9.5 cm. No adenopathy is seen. Dictated by: Tae Vo M.D. on 04/24/2019 at 11:11 Approved by: Tae Vo M.D. on 04/24/2019 at 11:18
== END ==
PROVIDERS: PCP Internal Medicine; Referring Provider Internal Medicine; Visit Provider Internal Medicine
DX: M53.3 Sacrococcygeal disorders, not elsewhere classified (principal); R10.2 Pelvic and perineal pain; Z85.42 Personal history of malignant neoplasm of other parts of uterus
CPT/HCPCS: 72197

== ENCOUNTER → 2019-06-25 14:07 | Outpatient (CLI) | payer OTHER, SELFPAY ==
--- NOTE | 2019-06-25 | DI.MRI.S_ITS ---
PROCEDURE: MR PELIS WO/W CON INDICATIONS: Secondary malignant neoplasm of bone TECHNIQUE: Noncontrast coronal T1 spin echo and STIR, sagittal T1 spin echo with fat saturation and STIR, axial T1 spin echo and T2 fast spin echo with fat saturation. After the administration of contrast, axial/sagittal/coronal T1 spin echo with fat saturation through the pelvis. COMPARISON: [facility], MR, MR PELVIS WO CON, 04/26/2018, 15:27. [facility], MR, MR PELVIS WO/W CON, 04/23/2019, 15:56. FINDINGS: Image quality: Excellent. Since 04/23/19, no definite interval change in right sacral ala marrow signal changes and enhancement in keeping with metastatic disease. Abnormal signal closely abuts the right sacral neural foramen however no definite effaced appearance of the perineural fat. There is mild residual signal change and enhancement present within both left sacral ala which is grossly unchanged. Lower lumbar spondylosis and facet arthropathy. There is also T2 hyperintense symmetric appearing signal changes at the pubic bodies which appears more conspicuous since the prior study Soft tissues: No soft tissue masses are visualized. There is bilateral hip abductor insertional tendinopathy. The scanned muscles demonstrate normal overall bulk and internal signal. Subcutaneous tissues appear normal as well. No abnormal soft tissue enhancement. IMPRESSION: Overall, grossly stable examination since 04/23/19 demonstrating bilateral sacral ala metastatic disease without interval change Signal changes at both pubic bodies suggestive of chronic insufficiency fractures although technically, metastatic disease is within the differential (thought be less likely). These appear more conspicuous since the prior study. Recommend clinical correlation Dictated by: Armando Arreola M.D. on 06/25/2019 at 16:37 Approved by: Armando Arreola M.D. on 06/25/2019 at 16:45
[2019-06-25 17:39] LABS: Iron 115 ug/dL (37-170)
[2019-06-25 17:46] LABS: Alanine Aminotransferase 13 IU/L (<35); Albumin 4.3 g/dL (3.5-5.0); Albumin Globulin Ratio 1.3 (1.0-2.8); Alkaline Phosphatase 70 U/L (38-126); Aspartate Aminotransferase 24 IU/L (14-36); BUN Creatinine Ratio 22.1 (6-22); Bilirubin Total 0.4 mg/dL (0.2-1.3); Blood Urea Nitrogen 17 mg/dL (7-17); C-Reactive Protein Quant < 0.5 mg/dL (<1.0); Calcium 9.3 mg/dL (8.4-10.2); Carbon Dioxide 30 mmol/L (22-32); Chloride 101 mmol/L (98-107); Estimated Glomerular Filt Rate > 60.0 mL/min (>60); Globulin 3.4 g/dL (1.7-4.1); Glucose 67 mg/dL (80-110); HEMOLYSIS < 15 (0-50); Potassium 4.3 mmol/L (3.4-5.1); Sodium 137 mmol/L (137-145); Total Protein 7.7 g/dL (6.3-8.2); Vitamin D 25 Hydroxy (D3) 59.6 ng/mL (30.0-100.0)
[2019-06-25 17:49] LABS: Total Iron Binding Capacity 406 ug/dL (265-497)
[2019-06-25 17:58] LABS: Free T3, Triiodothyronine Free 4.43 pg/mL (2.77-5.27); Free T4, Direct Thyroxine 0.85 ng/dL (0.78-2.19)
[2019-06-25 18:12] LABS: Thyroid Stimulating Hormone 2.96 uIU/mL (0.47-4.68)
[2019-06-25 18:16] LABS: Ferritin 43 ng/mL (11-264)
[2019-06-25 18:26] LABS: Erythrocyte Sedimentation Rate 5 MM/HR (0-20)
[2019-06-26 07:09] LABS: Homocysteine 7.8 umol/L (0.0-17.2)
== END ==
PROVIDERS: PCP Internal Medicine; Referring Provider Naturopath; Visit Provider Specialist
DX: C54.1 Malignant neoplasm of endometrium (principal); C79.51 Secondary malignant neoplasm of bone; E06.3 Autoimmune thyroiditis; E72.11 Homocystinuria; R77.8 Other specified abnormalities of plasma proteins; R60.0 Localized edema; M47.816 Spondylosis without myelopathy or radiculopathy, lumbar region
CPT/HCPCS: 36415; 72197; 80053; 82306; 82728; 83090; 83540; 83550; 84439; 84443; 84481; 85384; 85651; 86140

== ENCOUNTER 2019-12-29 23:41 | Emergency (ER) | payer OTHER, SELFPAY ==
[2019-12-29 23:48] VITALS: BP 143/83; PULSE 81; RESP 18; TEMP 36.5; O2SAT 98; BMI 33.3
--- NOTE | 2019-12-29 23:56 | ED.GENADULT ---
HPI - General Adult General Chief complaint: Dental/Oral Stated complaint: Thinks she swallowed glass Time Seen by Provider: 12/29/19 23:44 Source: patient Mode of arrival: Ambulatory Limitations: no limitations Related Data Previous Rx's Medication Instructions Recorded clonidine 1 patch TRANSDERMAL QWEEK #1 each 07/29/18 ondansetron HCl [Zofran] 4 mg PO QID PRN #10 tab 08/01/18 Allergies Allergy/AdvReac Type Severity Reaction Status Date / Time ibuprofen Allergy Verified 07/29/18 01:06 Iodinated Contrast Media Allergy Verified 07/29/18 01:06 [Iodinated Contrast- Oral and IV Dye] Patient History Surgical History No pertinent past surgical history (Acute) Social History marital status: lives independently: Yes Smoking Status: Never smoker substance use type: marijuana Smoking Status: Never smoker alcohol intake frequency: other Substance Use Type: marijuana Exam Initial Vital Signs Initial Vital Signs: Vital Signs Temperature 97.7 F 12/29/19 23:48 Pulse Rate 81 12/29/19 23:48 Respiratory Rate 18 12/29/19 23:48 Blood Pressure 143/83 H 12/29/19 23:48 Pulse Oximetry 98 12/29/19 23:48 Course Vital Signs Vital signs: Vital Signs - 8 hr 12/29/19 23:48 Temperature 97.7 F Pulse Rate 81 Respiratory Rate 18 Blood Pressure 143/83 H Pulse Oximetry 98 Discharge Plan Departure Patient Disposition: Home Clinical Impression: Swallowed foreign body Qualifiers: Encounter type: initial encounter Qualified Code(s): T18.9XXA - Foreign body of alimentary tract, part unspecified, initial encounter Instructions: DI for Foreign Body, Swallowed-Adult Activity Restrictions/Additional Instructions: You can eat and drink like normal. Contact your primary provider for follow-up. Return to the emergency department for any new or worsening symptoms Prescriptions: No Action clonidine 0.1 mg/24 hr patch weekly 1 patch Transdermal QWEEK Qty: 1 RF: 0 ondansetron HCl [Zofran] 4 mg tablet 4 mg PO QID PRN (Reason: nausea and vomiting) Qty: 10 RF: 0 Referrals: Mya Denson MD [Primary Care Provider] -
== END 2019-12-30 00:02 | disposition home or self-care (01) ==
PROVIDERS: Emergency Provider Emergency Medicine; PCP Internal Medicine
DX: T18.9XXA Foreign body of alimentary tract, part unspecified, initial encounter (principal)
CPT/HCPCS: 99281

== ENCOUNTER → 2020-01-31 15:31 | Outpatient (CLI) | payer OTHER, SELFPAY ==
--- NOTE | 2020-01-31 | DI.RAD.S_ITS ---
PROCEDURE: XR SHOULDER RT MIN 2V INDICATIONS: right shoulder pain TECHNIQUE: 3 views of the shoulder were acquired. COMPARISON: None. FINDINGS: Bones: No fractures or dislocations. No suspicious bony lesions. Visualized ribs appear intact. Mild osteoarthritis at the AC joint. Soft tissues: No suspicious soft tissue calcifications. Possible mild or early pneumonia right lung base seen on 2 of the three views. IMPRESSION: Possible mild or early pneumonia right lung base. Follow-up by dedicated chest plain film may be warranted depending on the clinical status. Inflammatory change abutting the diaphragm can result in shoulder pain. Dictated by: Tae Vo M.D. on 01/31/2020 at 16:41 Approved by: Tae Vo M.D. on 01/31/2020 at 16:42
== END ==
PROVIDERS: PCP Internal Medicine; Referring Provider Internal Medicine; Visit Provider Internal Medicine
DX: M25.511 Pain in right shoulder (principal); M19.011 Primary osteoarthritis, right shoulder
CPT/HCPCS: 73030

== ENCOUNTER 2020-12-29 23:21 | Emergency (ER) | payer OTHER, SELFPAY ==
[2020-12-29 23:32] VITALS: BP 153/66; PULSE 84; RESP 22
[2020-12-29 23:47] VITALS: BP 163/72; PULSE 76; RESP 22; TEMP 36.8; O2SAT 96
--- NOTE | 2020-12-29 23:51 | DI.RAD.S_ITS ---
PROCEDURE: XR CHEST 1V INDICATIONS: chest pain TECHNIQUE: One view of the chest was acquired. COMPARISON: [facility], CR, XR CHEST 2V, 08/01/2018, 15:59. [facility], CT, CT CHEST ABDOMEN PELVIS WITH CONTRAST, 02/23/2019, 15:55. [facility], CR, XR CHEST 2 VIEWS, 02/13/2020, 16:27. [facility], CR, XR CHEST 2 VIEWS, 10/17/2020, 10:26. [facility], CR, XR CHEST 2 VIEWS, 11/11/2020, 15:16. FINDINGS: Surgical changes and devices: None. Lungs and pleura: Multiple round masses are seen bilaterally, suspicious for malignancy such as metastatic disease. Compared with the last chest x-ray dated 11/11/2020, the nodules are minimally changed. No pleural effusions or pneumothorax. Mediastinum: Mediastinal contours appear normal. Heart size is normal. Bones and chest wall: No suspicious bony lesions. Overlying soft tissues appear unremarkable. IMPRESSION: Bilateral pulmonary masses are present bilaterally, suspicious for metastatic disease. Overall, there is no significant change from 11/11/2020. Dictated by: Radha Giang M.D. on 12/30/2020 at 0:32 Approved by: Radha Giang M.D. on 12/30/2020 at 0:36
[2020-12-30] VITALS: PULSE 81; RESP 28
[2020-12-30] LABS: Add Manual Diff / Slide Review NO; Basophils Absolute Auto 0 /uL (0-100); Basophils Percent Auto 0.7 % (0-2); Eosinophils Absolute Auto 100 /uL (0-450); Eosinophils Percent Auto 4.2 % (2-4); Lymphocytes Absolute Auto 800 /uL (1100-4500); Lymphocytes Percent Auto 21.9 % (25-40); Mean Corpuscular Hemoglobin 32.1 PG (26-34); Mean Corpuscular Volume 91.8 fL (80-100); Monocytes Absolute Auto 500 /uL (0-900); Monocytes Percent Auto 13.2 % (3-14); Neutrophils Absolute Auto 2100 /uL (1500-7000); Platelet Count 257 X10^3/uL (150-400); Red Blood Cell Count 4.03 X10^6/uL (4.0-5.2); Red Cell Distribution Width 14.1 % (11.6-14.8); White Blood Cell Count 3.4 X10^3/uL (4.5-11.0)
[2020-12-30 00:05] LABS: Alanine Aminotransferase 19 IU/L (<35); Albumin 4.4 g/dL (3.5-5.0); Albumin Globulin Ratio 1.3 (1.0-2.8); Alkaline Phosphatase 79 U/L (38-126); Aspartate Aminotransferase 33 IU/L (14-36); BUN Creatinine Ratio 19.6 (6-22); Bilirubin Total 0.4 mg/dL (0.2-1.3); Blood Urea Nitrogen 18 mg/dL (7-17); Calcium 9.4 mg/dL (8.4-10.2); Carbon Dioxide 32 mmol/L (22-32); Chloride 106 mmol/L (98-107); Creatine Kinase 39 U/L (30-135); Estimated Glomerular Filt Rate > 60.0 mL/min (>60); Globulin 3.3 g/dL (1.7-4.1); Glucose 127 mg/dL (80-110); HEMOLYSIS < 15 (0-50); Lipase 101 U/L (23-300); Potassium 3.4 mmol/L (3.4-5.1); Sodium 144 mmol/L (137-145); Total Protein 7.7 g/dL (6.3-8.2)
[2020-12-30 00:17] LABS: Troponin I < 0.012 ng/mL (0.01-0.034)
[2020-12-30 00:30] VITALS: BP 153/66; PULSE 78; RESP 16
--- NOTE | 2020-12-30 00:36 | ED_ITS ---
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 Recent CT scan did not show pulmonary embolism. Just prior to arrival she was sitting on her couch and noticed an episode of tachycardia with a feeling that her heart was pounding out of her chest associated with slight dyspnea no orthopnea or nausea. She does not describe recent abdominal pain or diarrhea she does have a chronic cough from her metastatic lung nodules. She has not had any headaches. She is in the process of moving to [place] and try to establish with providers in the [place] area including Cardiology. She has never had an episode like this before. It is resolved by the time she is seen in the emergency department. Related Data Previous Rx's Medication Instructions Recorded clonidine 0.1 mg/24 hr weekly 1 patch TRANSDERMAL QWEEK #1 each 07/29/18 transdermal patch ondansetron HCl 4 mg tablet 4 mg PO QID PRN #10 tab 08/01/18 (Zofran) Allergies Allergy/AdvReac Type Severity Reaction Status Date / Time ibuprofen Allergy Verified 07/29/18 01:06 Iodinated Contrast Media Allergy Verified 07/29/18 01:06 [Iodinated Contrast- Oral and IV Dye] Review of Systems Review of Systems Narrative: Remainder of complete review of systems is otherwise unremarkable except for that included in the HPI. Patient History Surgical History No pertinent past surgical history Social History marital status: lives independently: Yes Smoking Status: Never smoker substance use type: marijuana Smoking Status: Never smoker alcohol intake frequency: other Substance Use Type: marijuana Exam Narrative Exam Narrative: General: Chronically ill appearing, in no acute distress. Able to give a complete and coherent history. Well-nourished well-developed HEENT: Moist mucous membranes, normal sclera with reactive pupils, Neck: No JVD, supple Respiratory: Lungs with her persistent cough, scattered wheeze and mild rhonchi in the bases without bibasilar crackles. Full and symmetrical air movement Cardiac: Regular rate and rhythm no murmurs no bruits Abdomen: Soft, nontender, good bowel tones, no flank pain Skin: Warm and dry, no rashes Neurologic: Grossly neurologically intact with no obvious asymmetries or abnormalities Extremities: No trauma, well perfused Psych: Cooperative, appropriate insight and affect Initial Vital Signs Initial Vital Signs: Vital Signs Pulse Rate 84 12/29/20 23:32 Respiratory Rate 22 12/29/20 23:32 Blood Pressure 153/66 H 12/29/20 23:32 Course Orders Ordered: ED Orders 12/29/20 23:30 Complete Blood Count AUTO DIFF Stat Comprehensive Metabolic Panel Stat Lipase Stat Troponin & CK Cardiac Panel Stat 12/29/20 23:51 XR chest 1V Stat EKG-12 Lead Stat 12/30/20 00:55 D Dimer Stat NT-proBNP (BNP-Adult 18+) Stat Vital Signs Vital signs: Vital Signs - 8 hr 12/29/20 23:32 12/29/20 23:47 12/30/20 00:00 Temperature 98.2 F Pulse Rate 84 76 81 Respiratory Rate 22 22 28 H Blood Pressure 153/66 H 163/72 H Pulse Oximetry 96 12/30/20 00:30 12/30/20 01:00 12/30/20 01:31 Temperature Pulse Rate 78 77 68 Respiratory Rate 16 24 17 Blood Pressure 153/66 H 153/66 H 136/61 Pulse Oximetry 12/30/20 02:00 12/30/20 02:01 Temperature Pulse Rate 71 69 Respiratory Rate 23 18 Blood Pressure 128/59 L 128/59 L Pulse Oximetry MDM - Chest Pain Lab Data Result diagrams: 12/29/20 23:30 12/29/20 23:30 Labs: Lab Results 12/29/20 12/29/20 12/29/20 Range/Units 23:30 23:30 23:30 WBC 3.4 L (4.5-11.0) X10^3/uL RBC 4.03 (4.0-5.2) X10^6/uL Hgb 13.0 (12.0-16.0) g/dL Hct 37.0 (36-46) % MCV 91.8 (80-100) fL MCH 32.1 (26-34) PG MCHC 35.0 (30-36) % RDW 14.1 (11.6-14.8) % Plt Count 257 (150-400) X10^3/uL Neut % (Auto) 60.0 (50-75) % Lymph % (Auto) 21.9 L (25-40) % [place] % (Auto) 13.2 (3-14) % Eos % (Auto) 4.2 H (2-4) % Baso % (Auto) 0.7 (0-2) % Neut # (Auto) 2100 (5481-1034) /uL Lymph # (Auto) 800 L (8965-7995) /uL [place] # (Auto) 500 (0-900) /uL Eos # (Auto) 100 (0-450) /uL Baso # (Auto) 0 (0-100) /uL D-Dimer 225 (<230) ng/mL Sodium 144 (137-145) mmol/L Potassium 3.4 (3.4-5.1) mmol/L Chloride 106 (98-107) mmol/L Carbon Dioxide 32 (22-32) mmol/L BUN 18 H (7-17) mg/dL Creatinine 0.92 (0.52-1.04) mg/dL Estimated GFR > 60.0 (>60) mL/min BUN/Creatinine Ratio 19.6 (6-22) Glucose 127 H (80-110) mg/dL Calcium 9.4 (8.4-10.2) mg/dL Total Bilirubin 0.4 (0.2-1.3) mg/dL AST 33 (14-36) IU/L ALT 19 (<35) IU/L Alkaline Phosphatase 79 (38-126) U/L Total Creatine Kinase 39 (30-135) U/L CK-MB (CK-2) TNP CK-MB (CK-2) Rel Index TNP Troponin I < 0.012 (0.01-0.034) ng/mL NT-Pro-B Natriuret Pep (<125) pg/mL Total Protein 7.7 (6.3-8.2) g/dL Albumin 4.4 (3.5-5.0) g/dL Globulin 3.3 (1.7-4.1) g/dL Albumin/Globulin Ratio 1.3 (1.0-2.8) Lipase 101 (23-300) U/L 12/29/20 Range/Units 23:30 WBC (4.5-11.0) X10^3/uL RBC (4.0-5.2) X10^6/uL Hgb (12.0-16.0) g/dL Hct (36-46) % MCV (80-100) fL MCH (26-34) PG MCHC (30-36) % RDW (11.6-14.8) % Plt Count (150-400) X10^3/uL Neut % (Auto) (50-75) % Lymph % (Auto) (25-40) % [place] % (Auto) (3-14) % Eos % (Auto) (2-4) % Baso % (Auto) (0-2) % Neut # (Auto) (2860-1763) /uL Lymph # (Auto) (1499-6822) /uL [place] # (Auto) (0-900) /uL Eos # (Auto) (0-450) /uL Baso # (Auto) (0-100) /uL D-Dimer (<230) ng/mL Sodium (137-145) mmol/L Potassium (3.4-5.1) mmol/L Chloride (98-107) mmol/L Carbon Dioxide (22-32) mmol/L BUN (7-17) mg/dL Creatinine (0.52-1.04) mg/dL Estimated GFR (>60) mL/min BUN/Creatinine Ratio (6-22) Glucose (80-110) mg/dL Calcium (8.4-10.2) mg/dL Total Bilirubin (0.2-1.3) mg/dL AST (14-36) IU/L ALT (<35) IU/L Alkaline Phosphatase (38-126) U/L Total Creatine Kinase (30-135) U/L CK-MB (CK-2) CK-MB (CK-2) Rel Index Troponin I (0.01-0.034) ng/mL NT-Pro-B Natriuret Pep 285 H (<125) pg/mL Total Protein (6.3-8.2) g/dL Albumin (3.5-5.0) g/dL Globulin (1.7-4.1) g/dL Albumin/Globulin Ratio (1.0-2.8) Lipase (23-300) U/L Imaging Data Chest x-ray: Radiologist's Impression: FINDINGS:? ? Surgical changes and devices:? None.? ? Lungs and pleura:? Multiple round masses are seen bilaterally, suspicious for malignancy such as metastatic disease.? Compared with the last chest x-ray dated 11/11/2020, the nodules are minimally changed.? No pleural effusions or pneumothorax.? ? Mediastinum:? Mediastinal contours appear normal.? Heart size is normal.? ? Bones and chest wall:? No suspicious bony lesions.? Overlying soft tissues appear unremarkable.? ? IMPRESSION:? Bilateral pulmonary masses are present bilaterally, suspicious for metastatic disease.? Overall, there is no significant change from 11/11/2020. ? ? ? Dictated by: Radha Giang M.D. on 12/30/2020 at 0:32? ?? ECG Data Interpretation: NSR 85 left anterior fascicular block No acute ischemia MDM Narrative Medical decision making narrative: 65-year-old woman who was diagnosed with metastatic endometrial cancer at least 4 years ago who has outlived actuarial tables. Presents with a limited episode of palpitations and a heart rate she describes as in the 150 range. Her description certainly sounds like a a brief episode of atrial fibrillation. Workup is entirely reassuring for any new findings on today's exam. She does have the metastatic disease appreciated on c hest x-ray. No evidence of congestive heart failure, STEMI or non STEMI, she has had no arrhythmias while being monitored in the emergency department and no evidence of pulmonary embolism. She has no complaints consistent with any type of infectious etiology. All of the workup and findings reviewed with patient and her . At this time, I have suggested that she follow-up with her air valve repairer with whom she is to establish care next week. May choose to do a ambulatory analysis analyst to see if we can figure out what the episode of palpitation actually was and what it represents to her overall health. At this point there are no life-threatening issues and she is safe for home discharge Discharge Plan Departure Patient Disposition: Home Clinical Impression: Palpitation, Atypical chest pain Instructions: DI for Atrial Fibrillation Activity Restrictions/Additional Instructions: Thank you for coming in today The rapid heart rate that you had noticed at home resolved by the time that you are in the emergency department. Watching your heart all monitors through your emergency department stay showed normal sinus rhythm through the entire visit. Your blood work did not suggest heart attack, of blood clot in your lungs, infection or worsening symptoms related to your cancer. I suspect that you did have a brief episode of atrial fibrillation. This rhythm by itself is usually not a problem. If continues at a very fast rate the rate itself can become a problem. If it happens again I would encourage you to call 911 so the medics can get an EKG and we can clearly identify the rhythm. I would also suggest that you review this episode with your air valve repairer when you meet them later this month. I wish you the very best Prescriptions: No Action clonidine 0.1 mg/24 hr patch weekly 1 patch Transdermal QWEEK Qty: 1 RF: 0 ondansetron HCl [Zofran] 4 mg tablet 4 mg PO QID PRN (Reason: nausea and vomiting) Qty: 10 RF: 0 Referrals: Mya Denson MD [Primary Care Provider] -
[2020-12-30 01:00] VITALS: BP 153/66; PULSE 77; RESP 24
[2020-12-30 01:11] LABS: D Dimer 225 ng/mL (<230)
[2020-12-30 01:20] LABS: NT-proBNP (BNP-Adult 18+) 285 pg/mL (<125)
[2020-12-30 01:31] VITALS: BP 136/61; PULSE 68; RESP 17
[2020-12-30 02:00] VITALS: BP 128/59; PULSE 71; RESP 23
[2020-12-30 02:01] VITALS: BP 128/59; PULSE 69; RESP 18
== END 2020-12-30 02:06 | disposition home or self-care (01) ==
PROVIDERS: Emergency Provider Emergency Medicine; PCP Internal Medicine
DX: R00.2 Palpitations (principal); R00.0 Tachycardia, unspecified; R07.89 Other chest pain; C54.1 Malignant neoplasm of endometrium
CPT/HCPCS: 36415; 71045; 80053; 82550; 82553; 83690; 83880; 84484; 85025; 85379; 93005; 99284

== ENCOUNTER 2021-01-22 20:20 | Emergency (ER) | payer OTHER, SELFPAY ==
[2021-01-22] VITALS (12 sets, daily range): BP systolic 112–133; BP diastolic 59–65; PULSE 69–91; RESP 17–20; TEMP 37.4–38.7; O2SAT 92–97; BMI 33.3
[2021-01-22 20:39] LABS: COVID19 -Nasal RAPID POSITIVE (Negative)
--- NOTE | 2021-01-22 21:06 | ED.SOB ---
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 She actually just returned from [place] he currently vaccinated for COVID she is febrile she has had shortness of and body aches along with diarrhea ongoing for the last 4 days. She has had decreased appetite. No nausea or vomiting. She has no abdominal pain. She has had an ongoing nonproductive cough for the last 6 months that she believes is due to her cancer. Related Data Previous Rx's Medication Instructions Recorded clonidine 0.1 mg/24 hr weekly 1 patch TRANSDERMAL QWEEK #1 each 07/29/18 transdermal patch ondansetron HCl 4 mg tablet 4 mg PO QID PRN #10 tab 08/01/18 (Zofran) Allergies Allergy/AdvReac Type Severity Reaction Status Date / Time ibuprofen Allergy Verified 07/29/18 01:06 Iodinated Contrast Media Allergy Verified 07/29/18 01:06 [Iodinated Contrast- Oral and IV Dye] Review of Systems Review of Systems Narrative: GENERAL: Denies chills, fatigue, malaise, fever, sweats, travel HEENT: Denies sinus pain, ear pain, sore throat, difficulty swallowing, neck pain RESPIRATORY: See HPI CARDIOVASCULAR: Denies chest pain, palpitations, orthopnea, edema GASTROINTESTINAL: See HPI : Denies dysuria, frequency, incontinence, hematuria, urinary retention, flank pain. MUSCULOSKELETAL: Denies weakness, joint pain, or bony pain SKIN: No rash, no erythema, no pruritus NEUROLOGIC: Denies weakness, dizziness, headache, numbness, change in speech, confusion PSYCHIATRIC: No concerning psychosocial issues. 12 point review of systems is negative except for those stated above and HPI Patient History Surgical History No pertinent past surgical history Social History marital status: lives independently: Yes Smoking Status: Never smoker substance use type: marijuana Smoking Status: Never smoker alcohol intake frequency: other Substance Use Type: marijuana Exam Initial Vital Signs Initial Vital Signs: Vital Signs Pulse Rate 91 H 01/22/21 20:31 Pulse Oximetry 95 01/22/21 20:31 GENERAL: Alert 65-year-old female and in no acute distress. HEENT: Head atraumatic,EOMI, pupils reactive, face symmetric, moist mucous membranes CARDIOVASCULAR: Regular rate and rhythm without murmurs, rubs or gallops. RESPIRATORY: Breath sounds equal bilaterally, no wheezes rales or rhonchi. ABDOMEN: Soft, nontender. Normoactive bowel sounds all 4 quadrants. No guarding or rebound. EXTREMITIES: Normal range of motion, no clubbing or edema. Neurovascularly intact NEUROLOGICAL: Alert and oriented x4.Normal gait and speech. SKIN: Warm, dry, no laceration, no petechiae, no rashes or lesions. Course Orders Ordered: ED Orders 01/22/21 20:29 COVID19 -Nasal swab/Pre-Proc Stat 01/22/21 21:14 C-Reactive Protein Quant Stat Complete Blood Count AUTO DIFF Stat Comprehensive Metabolic Panel Stat Ferritin Stat NT-proBNP (BNP-Adult 18+) Stat Procalcitonin Stat Troponin & CK Cardiac Panel Stat 01/22/21 21:21 CT angio chest PE protocol Stat Discontinued Medications Acetaminophen (Acetaminophen 325 Mg Tablet) 975 mg PO NOW ONE Stop: 01/22/21 21:27 Last Admin: 01/22/21 21:32 Dose: 975 mg Documented by: CLAUDIOYLMYRNA Diphenhydramine HCl (Diphenhydramine 50 Mg/Ml Vial) 25 mg IV NOW ONE Stop: 01/22/21 21:45 Last Admin: 01/22/21 21:57 Dose: 25 mg Documented by: CLAUDIOYLOR Sodium Chloride (Normal Saline 0.9%) 1,000 mls @ 1,000 mls/hr IV BOLUS ONE Stop: 01/22/21 22:20 Last Admin: 01/22/21 21:32 Dose: 1,000 mls/hr Documented by: ATAYLOR Methylprednisolone (Methylprednisolone 125 Mg/2 Ml Vial) 125 mg IV NOW ONE Stop: 01/22/21 21:45 Last Admin: 01/22/21 21:57 Dose: 125 mg Documented by: DENY Vital Signs Vital signs: Vital Signs - 8 hr 01/22/21 20:31 01/22/21 20:32 01/22/21 20:36 Temperature 101.6 F H Pulse Rate 91 H 90 89 Respiratory Rate 17 Blood Pressure 117/59 L 117/59 L Pulse Oximetry 95 94 94 01/22/21 21:00 01/22/21 21:30 01/22/21 22:00 Temperature Pulse Rate 89 86 74 Respiratory Rate Blood Pressure 112/64 Pulse Oximetry 93 94 92 01/22/21 22:01 01/22/21 22:33 01/22/21 22:38 Temperature 99.3 F Pulse Rate 77 86 Respiratory Rate 20 Blood Pressure 133/62 Pulse Oximetry 92 97 01/22/21 23:00 01/22/21 23:30 01/22/21 23:47 Temperature Pulse Rate 69 74 71 Respiratory Rate Blood Pressure 128/65 Pulse Oximetry 93 93 93 MDM - SOB/Dyspnea Lab Data Result diagrams: 01/22/21 21:14 01/22/21 21:14 Labs: Lab Results 01/22/21 01/22/21 01/22/21 Range/Units 20:29 21:14 21:14 WBC 3.5 L (4.5-11.0) X10^3/uL RBC 3.63 L (4.0-5.2) X10^6/uL Hgb 11.5 L (12.0-16.0) g/dL Hct 33.0 L (36-46) % MCV 90.9 (80-100) fL MCH 31.6 (26-34) PG MCHC 34.8 (30-36) % RDW 13.5 (11.6-14.8) % Plt Count 154 (150-400) X10^3/uL Neut % (Auto) 81.2 H (50-75) % Lymph % (Auto) 8.1 L (25-40) % Mercer % (Auto) 9.9 (3-14) % Eos % (Auto) 0.2 L (2-4) % Baso % (Auto) 0.6 (0-2) % Neut # (Auto) 2800 (3631-7000) /uL Lymph # (Auto) 300 L (0727-2636) /uL Mercer # (Auto) 300 (0-900) /uL Eos # (Auto) 0 (0-450) /uL Baso # (Auto) 0 (0-100) /uL Sodium (137-145) mmol/L Potassium (3.4-5.1) mmol/L Chloride (98-107) mmol/L Carbon Dioxide (22-32) mmol/L BUN (7-17) mg/dL Creatinine (0.52-1.04) mg/dL Estimated GFR (>60) mL/min BUN/Creatinine Ratio (6-22) Glucose (80-110) mg/dL Calcium (8.4-10.2) mg/dL Ferritin (11-264) ng/mL Total Bilirubin (0.2-1.3) mg/dL AST (14-36) IU/L ALT (<35) IU/L Alkaline Phosphatase (38-126) U/L Total Creatine Kinase (30-135) U/L CK-MB (CK-2) CK-MB (CK-2) Rel Index Troponin I (0.01-0.034) ng/mL C-Reactive Protein (<1.0) mg/dL NT-Pro-B Natriuret Pep (<125) pg/mL Total Protein (6.3-8.2) g/dL Albumin (3.5-5.0) g/dL Globulin (1.7-4.1) g/dL Albumin/Globulin Ratio (1.0-2.8) Procalcitonin 0.06 (<0.5) ng/mL SARS-CoV-2 (PCR) Positive H (Negative) 01/22/21 Range/Units 21:14 WBC (4.5-11.0) X10^3/uL RBC (4.0-5.2) X10^6/uL Hgb (12.0-16.0) g/dL Hct (36-46) % MCV (80-100) fL MCH (26-34) PG MCHC (30-36) % RDW (11.6-14.8) % Plt Count (150-400) X10^3/uL Neut % (Auto) (50-75) % Lymph % (Auto) (25-40) % Mercer % (Auto) (3-14) % Eos % (Auto) (2-4) % Baso % (Auto) (0-2) % Neut # (Auto) (0839-1634) /uL Lymph # (Auto) (4880-0003) /uL Mercer # (Auto) (0-900) /uL Eos # (Auto) (0-450) /uL Baso # (Auto) (0-100) /uL Sodium 131 L (137-145) mmol/L Potassium 3.5 (3.4-5.1) mmol/L Chloride 104 (98-107) mmol/L Carbon Dioxide 21 L (22-32) mmol/L BUN 14 (7-17) mg/dL Creatinine 0.84 (0.52-1.04) mg/dL Estimated GFR > 60.0 (>60) mL/min BUN/Creatinine Ratio 16.7 (6-22) Glucose 141 H (80-110) mg/dL Calcium 8.1 L (8.4-10.2) mg/dL Ferritin 136 (11-264) ng/mL Total Bilirubin 0.3 (0.2-1.3) mg/dL AST 32 (14-36) IU/L ALT 17 (<35) IU/L Alkaline Phosphatase 60 (38-126) U/L Total Creatine Kinase 51 (30-135) U/L CK-MB (CK-2) TNP CK-MB (CK-2) Rel Index TNP Troponin I < 0.012 (0.01-0.034) ng/mL C-Reactive Protein 3.1 H (<1.0) mg/dL NT-Pro-B Natriuret Pep 328 H (<125) pg/mL Total Protein 6.6 (6.3-8.2) g/dL Albumin 3.7 (3.5-5.0) g/dL Globulin 2.9 (1.7-4.1) g/dL Albumin/Globulin Ratio 1.3 (1.0-2.8) Procalcitonin (<0.5) ng/mL SARS-CoV-2 (PCR) (Negative) Imaging Data CT scan - chest: Radiologist's Impression: PROCEDURE:? CT ANGIO CHEST PE PROTOCOL ? INDICATIONS:? covid, recent travel, cancer. ? TECHNIQUE:? After the administration of intravenous contrast, 2 mm thick sections acquired from the pulmonary apices to the posterior costophrenic angles.? 3-dimensional maximum intensity projection (MIP) coronal and sagittal reformats were then acquired through the thorax.? For radiation dose reduction, the following was used:? automated exposure control, adjustment of mA and/or kV according to patient size.? ? COMPARISON:? Located Within [facility], CT, CT CHEST ABDOMEN PELVIS WITH CONTRAST, 02/23/2019, 15:55.? Located Within [facility], CR, XR CHEST 2 VIEWS, 11/11/2020, 15:16. ? FINDINGS:? Image quality:? Excellent.? ? Pulmonary arteries:? Pulmonary arteries are normal in size, and demonstrate no intraluminal filling defects to suggest central pulmonary embolism.? ? Lungs and pleura:? Multiple bilateral pulmonary metastatic mass lesions have increased in size and number.? Current largest is in the right hepatic lobe measuring 3.6 cm.? Several ground-glass pulmonary infiltrates are noted as well.? Pleural spaces are clear. ? Mediastinum:? Heart size is normal, without pericardial effusion.? Thoracic aorta unremarkable without dissection or aneurysm.? Right hilar and mediastinal adenopathy present.? Subcarinal node measures 2 x 39 cm in short axis. ? Bones and chest wall:? No suspicious bony lesions.? Ribs and thoracic spine appear intact throughout.? Thyroid gland unremarkable.? No axillary or supraclavicular adenopathy.? ? Abdomen:? Visualized upper abdominal solid organs appear normal in the early arterial phase of enhancement.? ? IMPRESSION:? ? 1. No evidence of pulmonary embolism, aortic dissection or aneurysm. 2. Bilateral metastatic pulmonary nodules, much increased from prior CT 02/16/2019.? Associated right hilar and mediastinal adenopathy. 3. Small multifocal interstitial pulmonary infiltrates could reflect superimposed atypical viral pneumonia.? No pleural effusion? ? ? Dictated by: Frank King M.D. on 01/22/2021 at 22:36 ? ? Approved by: Frank King M.D. on 01/22/2021 at 22:50 ? MDM Narrative Medical decision making narrative: Patient has known cancer and new diagnosis of COVID. She recently flew to and from [place]. CT fortunately does not show any pulmonary embolism and continues to show metastatic nodules. This time she is not meet admission criteria for COVID oxygen is 94-96% she is not showing any signs of significant difficulty breathing. His I have discussed with her home monitoring and when to return to the emergency department suspect that with her concern immunocompromise that she will likely decompensate. Discharge Plan Departure Patient Disposition: Home Clinical Impression: COVID-19 Instructions: DI for COVID-19 (Suspected or Confirmed ) Activity Restrictions/Additional Instructions: * if you have not yet been vaccinated is still recommended and encouraged that you do so once your infection has passed At home: -Monitor oxygen with pulse oximeter. If less than 90% for more than 1 hour please return to emergency department -I recommend lying on stomach for side rather than back, it has been proven to increase oxygen levels -Wash hands frequently. -Stay isolated at home please follow the isolation instructions below. -Increase fluid intake. -you may take Tylenol as directed if needed for pain or fever Emergency warning signs for COVID-19: - Difficulty breathing or shortness of breath, oxygen less than 90% - Persistent pain or pressure in the chest - New confusion or inability to arouse - Bluish lips or face CDC Guidelines for home isolation: - Stay away from others - Limit contact with pets and animals: If you must care for a pet, wash your hands before and after interacting with them - Wear a mask while in public all places - Cover your mouth and nose with a tissue when you cough or sneeze. Dispose of tissues in a lined trash can and wash your hands immediately with soap and water for at least 20 seconds. If soap and water are not available, clean hands with alcohol-based hand machine operator slitter technician that contains at least 60% alcohol. - Clean your hands often with soap and water for at least 20 seconds - Avoid touching your eyes, nose and mouth with unwashed hands - Do not share dishes, drinking glasses, cups, eating utensils, towels, or bedding with other people in your home. After using these items, wash them thoroughly with soap and water or put in the septic tank cleaner. - Clean high-touch surfaces in your isolation area (?sick room? and bathroom) every day; let a caregiver clean and disinfect high-touch surfaces in other areas of the home. Clean the area or item with soap and water or another detergent if it is dirty. Then, use a household disinfectant. Prescriptions: No Action clonidine 0.1 mg/24 hr patch weekly 1 patch Transdermal QWEEK Qty: 1 0RF ondansetron HCl [Zofran] 4 mg tablet 4 mg PO QID PRN (Reason: nausea and vomiting) Qty: 10 0RF Referrals: Mya Denson MD [Primary Care Provider] -
--- NOTE | 2021-01-22 21:21 | DI.CT.S_ITS ---
PROCEDURE: CT ANGIO CHEST PE PROTOCOL INDICATIONS: covid, recent travel, cancer. TECHNIQUE: After the administration of intravenous contrast, 2 mm thick sections acquired from the pulmonary apices to the posterior costophrenic angles. 3-dimensional maximum intensity projection (MIP) coronal and sagittal reformats were then acquired through the thorax. For radiation dose reduction, the following was used: automated exposure control, adjustment of mA and/or kV according to patient size. COMPARISON: [facility], CT, CT CHEST ABDOMEN PELVIS WITH CONTRAST, 02/23/2019, 15:55. [facility], CR, XR CHEST 2 VIEWS, 11/11/2020, 15:16. FINDINGS: Image quality: Excellent. Pulmonary arteries: Pulmonary arteries are normal in size, and demonstrate no intraluminal filling defects to suggest central pulmonary embolism. Lungs and pleura: Multiple bilateral pulmonary metastatic mass lesions have increased in size and number. Current largest is in the right hepatic lobe measuring 3.6 cm. Several ground-glass pulmonary infiltrates are noted as well. Pleural spaces are clear. Mediastinum: Heart size is normal, without pericardial effusion. Thoracic aorta unremarkable without dissection or aneurysm. Right hilar and mediastinal adenopathy present. Subcarinal node measures 2 x 39 cm in short axis. Bones and chest wall: No suspicious bony lesions. Ribs and thoracic spine appear intact throughout. Thyroid gland unremarkable. No axillary or supraclavicular adenopathy. Abdomen: Visualized upper abdominal solid organs appear normal in the early arterial phase of enhancement. IMPRESSION: 1. No evidence of pulmonary embolism, aortic dissection or aneurysm. 2. Bilateral metastatic pulmonary nodules, much increased from prior CT 02/16/2019. Associated right hilar and mediastinal adenopathy. 3. Small multifocal interstitial pulmonary infiltrates could reflect superimposed atypical viral pneumonia. No pleural effusion Dictated by: Frank King M.D. on 01/22/2021 at 22:36 Approved by: Frank King M.D. on 01/22/2021 at 22:50
[2021-01-22] MEDS: SODIUM CHLORIDE 0.9% 1,000 ML 1000 ML IV (21:32)
[2021-01-22] MEDS: ACETAMINOPHEN 325 MG TABLET 975 MG PO (21:32)
[2021-01-22 21:33] LABS: Add Manual Diff / Slide Review NO; Basophils Absolute Auto 0 /uL (0-100); Basophils Percent Auto 0.6 % (0-2); Eosinophils Absolute Auto 0 /uL (0-450); Eosinophils Percent Auto 0.2 % (2-4); Hemoglobin 11.5 g/dL (12.0-16.0); Lymphocytes Absolute Auto 300 /uL (1100-4500); Lymphocytes Percent Auto 8.1 % (25-40); Mean Corpuscular HGB Conc 34.8 % (30-36); Mean Corpuscular Hemoglobin 31.6 PG (26-34); Mean Corpuscular Volume 90.9 fL (80-100); Monocytes Absolute Auto 300 /uL (0-900); Monocytes Percent Auto 9.9 % (3-14); Neutrophils Absolute Auto 2800 /uL (1500-7000); Neutrophils Percent Auto 81.2 % (50-75); Platelet Count 154 X10^3/uL (150-400); Red Blood Cell Count 3.63 X10^6/uL (4.0-5.2); Red Cell Distribution Width 13.5 % (11.6-14.8); White Blood Cell Count 3.5 X10^3/uL (4.5-11.0)
[2021-01-22 21:37] LABS: Alanine Aminotransferase 17 IU/L (<35); Albumin 3.7 g/dL (3.5-5.0); Albumin Globulin Ratio 1.3 (1.0-2.8); Alkaline Phosphatase 60 U/L (38-126); Aspartate Aminotransferase 32 IU/L (14-36); BUN Creatinine Ratio 16.7 (6-22); Bilirubin Total 0.3 mg/dL (0.2-1.3); Blood Urea Nitrogen 14 mg/dL (7-17); Calcium 8.1 mg/dL (8.4-10.2); Carbon Dioxide 21 mmol/L (22-32); Chloride 104 mmol/L (98-107); Creatine Kinase 51 U/L (30-135); Estimated Glomerular Filt Rate > 60.0 mL/min (>60); Globulin 2.9 g/dL (1.7-4.1); Glucose 141 mg/dL (80-110); HEMOLYSIS < 15 (0-50); Potassium 3.5 mmol/L (3.4-5.1); Sodium 131 mmol/L (137-145); Total Protein 6.6 g/dL (6.3-8.2)
[2021-01-22 21:49] LABS: NT-proBNP (BNP-Adult 18+) 328 pg/mL (<125); Troponin I < 0.012 ng/mL (0.01-0.034)
[2021-01-22 21:54] LABS: Procalcitonin 0.06 ng/mL (<0.5)
[2021-01-22] MEDS: methylPREDNISolone 125 MG/2 ML VIAL IV (21:57)
[2021-01-22] MEDS: diphenhydrAMINE 50 MG/ML VIAL 25 MG IV (21:57)
[2021-01-22 22:11] LABS: Ferritin 136 ng/mL (11-264)
[2021-01-22 22:54] LABS: C-Reactive Protein Quant 3.1 mg/dL (<1.0)
== END 2021-01-23 | disposition home or self-care (01) ==
PROVIDERS: Emergency Provider Emergency Medicine; PCP Internal Medicine
DX: U07.1 COVID-19 (principal)
CPT/HCPCS: 36415; 71275; 80053; 82550; 82728; 83880; 84145; 84484; 85025; 86140; 87635; 96374; 96375; 99284; C9803; J1200; J2930; Q9967